=== PATIENT | female | born 1990 | race African-American/Black ===

== ENCOUNTER 2020-03-01 08:38 | Emergency (ER) | payer MEDICAID ==
[2020-03-01] MEDS ORDERED: Sodium Chloride 0.9% 10 ML Syringe FLUSH PRN (08:41)
[2020-03-01] MEDS ORDERED: Sodium Chloride 0.9% 2.5 ML Syringe FLUSH PRN (08:41)
[2020-03-01] MEDS ORDERED: Sodium Chloride 0.9% 1,000 ML IV ONE (08:43)
[2020-03-01] MEDS ORDERED: Ibuprofen 800 MG Tab PO ONE ×2 (08:43→10:05)
--- NOTE | 2020-03-01 08:44 | EDM.PDOC ---
ED HPI GENERAL MEDICAL PROBLEM - General Stated Complaint: HEAVY BLEEDING Time Seen by Provider: 03/01/20 08:43 Source of Information: Reports: Patient History Limitations: Reports: No Limitations - History of Present Illness INITIAL COMMENTS - FREE TEXT/NARRATIVE: 29-year-old female presents for heavy vaginal bleeding. Patient is poor historian. She declines to answer certain questions because I am a male. She declines physical exam because I am a male. Patient notes that she was and had a miscarriage in November. She states that she had a positive test in January, but she is uncertain if she is or if this was because of her miscarriage in November. She notes heavy vaginal bleeding since yesterday after heavy lifting at work. She notes that she has had to use 3 pads this morning. She notes passage of clots. She feels nausea without vomiting. She does feel lower abdominal cramping pain. lower abdomen, lower back Pain Score (Numeric/FACES): 7 - Related Data Allergies Allergy/AdvReac Type Severity Reaction Status Date / Time No Known Allergies Allergy Verified 03/01/20 08:48 Home Meds: Home Meds Pnv No.95/Ferrous Fum/Folic AC [ Caplet] 1 tab PO DAILY 03/01/20 [History] ED ROS GENERAL - Review of Systems Review Of Systems: Comprehensive ROS is negative, except as noted in HPI. ED EXAM, GENERAL - Physical Exam Exam: See Below Exam Limited By: No Limitations General Appearance: Alert, WD/WN, No Apparent Distress Throat/Mouth: Normal Voice, No Airway Compromise Head: Atraumatic, Normocephalic Respiratory/Chest: No Respiratory Distress, No Accessory Muscle Use Cardiovascular: Normal Peripheral Pulses, Regular Rate, Rhythm GI/Abdominal: Soft, Non-Tender (Female) Exam: Other (Patient declines) Extremities: Normal Inspection Neurological: Alert, Normal Gait Psychiatric: Normal Affect, Normal Mood Skin Exam: Warm, Dry, Intact, Normal Color Course - Vital Signs Last Recorded V/S: Last Vital Signs Temp 97.9 F 03/01/20 08:45 Pulse 67 03/01/20 08:45 Resp 16 03/01/20 08:45 BP 118/84 03/01/20 08:45 Pulse Ox 99 03/01/20 08:45 - Orders/Labs/Meds Orders: Active Orders 24 hr Category Date Time Status HCG QUALITATIVE,URINE [URCHEM] Stat Lab 03/01/20 08:55 Received UA W/YUNIER RFLX IF INDICATED [URIN] Stat Lab 03/01/20 08:55 Received Sodium Chloride 0.9% [Saline Flush] Med 03/01/20 08:41 Active 10 ml FLUSH ASDIRECTED PRN Sodium Chloride 0.9% [Saline Flush] Med 03/01/20 08:41 Active 2.5 ml FLUSH ASDIRECTED PRN Saline Lock Insert [OM.PC] Stat Oth 03/01/20 08:42 Ordered Medication Orders Sodium Chloride (Saline Flush) 10 ml FLUSH ASDIRECTED PRN PRN Reason: Keep Vein Open Last Admin: 03/01/20 08:59 Dose: 10 ml Documented by: [id number] Sodium Chloride (Saline Flush) 2.5 ml FLUSH ASDIRECTED PRN PRN Reason: Keep Vein Open Last Admin: 03/01/20 08:59 Dose: 2.5 ml Documented by: [email or web address] Labs: Laboratory Tests 03/01/20 03/01/20 Range/Units 08:48 08:48 WBC 6.47 (4.0-11.0) K/uL RBC 5.00 (4.30-5.90) M/uL Hgb 14.1 (12.0-16.0) g/dL Hct 41.9 (36.0-46.0) % MCV 83.8 (80.0-98.0) fL MCH 28.2 (27.0-32.0) pg MCHC 33.7 (31.0-37.0) g/dL RDW Std Deviation 39.8 (28.0-62.0) fl RDW Coeff of Markell 13 (11.0-15.0) % Plt Count 188 (150-400) K/uL MPV 11.40 (7.40-12.00) fL Neut % (Auto) 54.5 (48.0-80.0) % Lymph % (Auto) 32.6 (16.0-40.0) % [place] % (Auto) 7.3 (0.0-15.0) % Eos % (Auto) 5.3 (0.0-7.0) % Baso % (Auto) 0.3 (0.0-1.5) % Neut # (Auto) 3.5 (1.4-5.7) K/uL Lymph # (Auto) 2.1 (0.6-2.4) K/uL [place] # (Auto) 0.5 (0.0-0.8) K/uL Eos # (Auto) 0.3 (0.0-0.7) K/uL Baso # (Auto) 0.0 (0.0-0.1) K/uL Nucleated RBC % 0.0 /100WBC Nucleated RBCs # 0 K/uL INR 1.21 APTT 26.3 (18.6-31.3) SEC Meds: Medications Generic Name Dose Route Start Last Admin Trade Name Freq PRN Reason Stop Dose Admin Sodium Chloride 10 ml 03/01/20 08:41 03/01/20 08:59 Saline Flush FLUSH 10 ml ASDIRECTED PRN Administration Keep Vein Open Sodium Chloride 2.5 ml 03/01/20 08:41 03/01/20 08:59 Saline Flush FLUSH 2.5 ml ASDIRECTED PRN Administration Keep Vein Open Discontinued Medications Generic Name Dose Route Start Last Admin Trade Name Freq PRN Reason Stop Dose Admin Sodium Chloride 1,000 mls @ 999 mls/hr 03/01/20 08:43 03/01/20 08:59 Normal Saline IV 03/01/20 09:43 999 mls/hr .Bolus ONE Administration Ibuprofen 800 mg 03/01/20 08:43 03/01/20 09:01 Motrin PO 03/01/20 08:44 Not Given ONETIME ONE Ibuprofen 800 mg 03/01/20 10:05 03/01/20 10:09 Motrin PO 03/01/20 10:06 800 mg ONETIME ONE Administration - Re-Assessments/Exams Free Text/Narrative Re-Assessment/Exam: 03/01/20 09:13 Will get labs, will treat medically. Will get ultrasound imaging. will follow up results and disposition accordingly. 03/01/20 10:03 Quantitative serum hCG level is negative. CBC is unremarkable. BMP is un remarkable. We will follow up ultrasound results and disposition accordingly. 03/01/20 10:27 US does not reveal emergent pathology. Recommend FIXTURE BUILDER f/u. Return precautions discussed and outlined in educational handout. Departure - Departure Time of Disposition: 10:27 Disposition: Home, Self-Care 01 Condition: Good Clinical Impression: Vaginal bleeding - Discharge Information Instructions: Abnormal Uterine Bleeding Referrals: PCP,None [Primary Care Provider] - Additional Instructions: Your test is negative. Your ultrasound does not reveal evidence of . Your hemoglobin level (blood count) is normal. You should follow-up with an FIXTURE BUILDER. If you experience continued heavy bleeding, feel like you are about to pass out, experience chest pain or shortness of breath, you should return to the emergency department for reassessment. If you do not have an FIXTURE BUILDER, below are a couple of different local options: [facility] [address] [place] [id number] [facility] [address] [place] [phone] The following information is given to patients seen in the emergency department who are being discharged to home. This information is to outline your options for follow-up care. We provide all patients seen in our emergency department with a follow-up referral. The need for follow-up, as well as the timing and circumstances, are variable depending upon the specifics of your emergency department visit. If you don't have a primary care physician on staff, we will provide you with a referral. We always advise you to contact your personal physician following an emergency department visit to inform them of the circumstance of the visit and for follow-up with them and/or the need for any referrals to a consulting specialist. The emergency department will also refer you to a specialist when appropriate. This referral assures that you have the opportunity for follow-up care with a specialist. All of these measure are taken in an effort to provide you with optimal care, which includes your follow-up. Under all circumstances we always encourage you to contact your private physician who remains a resource for coordinating your care. When calling for follow-up care, please make the office aware that this follow-up is from your recent emergency room visit. If for any reason you are refused follow-up, please contact the [facility] Emergency Department at and asked to speak to the emergency department charge nurse. Please follow up with your primary care physician. If you do not have a primary care physician, see below: [facility] [address] [place] [address], [place] [address] My [facility] [address] [place], [place] [id number] Sepsis Event Note (ED) - Focused Exam Vital Signs: Vital Signs Temp Pulse Resp BP Pulse Ox 03/01/20 08:45 97.9 F 67 16 118/84 99 - My Orders Last 24 Hours: My Active Orders 03/01/20 08:41 Sodium Chloride 0.9% [Saline Flush] 10 ml FLUSH ASDIRECTED PRN Sodium Chloride 0.9% [Saline Flush] 2.5 ml FLUSH ASDIRECTED PRN 03/01/20 08:42 Saline Lock Insert [OM.PC] Stat 03/01/20 08:55 HCG QUALITATIVE,URINE [URCHEM] Stat UA W/YUNIER RFLX IF INDICATED [URIN] Stat - Assessment/Plan Last 24 Hours: My Active Orders 03/01/20 08:41 Sodium Chloride 0.9% [Saline Flush] 10 ml FLUSH ASDIRECTED PRN Sodium Chloride 0.9% [Saline Flush] 2.5 ml FLUSH ASDIRECTED PRN 03/01/20 08:42 Saline Lock Insert [OM.PC] Stat 03/01/20 08:55 HCG QUALITATIVE,URINE [URCHEM] Stat UA W/YUNIER RFLX IF INDICATED [URIN] Stat
[2020-03-01 09:22] LABS: BLOOD UREA NITROGEN,BUN 10 mg/dL (7.0-18.0); CARBON DIOXIDE,CO2 27.7 mmol/L (21.0-32.0); CHLORIDE,CL 106 mmol/L (98-107); GLUCOSE RANDOM 100 mg/dL (74-106); POTASSIUM,K 3.7 mmol/L (3.5-5.1); SODIUM,NA 140 mmol/L (136-145)
--- NOTE | 2020-03-01 10:26 | US ---
Indication: with vaginal bleeding Technique: Sonography of the pelvis was performed. The study was performed transvaginally. Comparison: There are no prior studies for comparison Findings: The uterus is normal in size. There is heterogeneous thickening of the endometrium but there is no yolk sac, pole or organized fluid collection within the endometrium. There is moderate free fluid in the pelvis somewhat above that generally seen physiologically. However, it is sonographically simple. The ovaries are normal in size and there is no visible adnexal mass. Normal appearing follicles are identified bilaterally. Doppler of both ovaries was performed and there is normal arterial and venous flow without evidence of torsion. The differential for the heterogeneous thickening of the endometrium is very early IUP, pseudo gestational reaction of an ectopic , blood clot within the endometrial canal or gestational trophoblastic disease. I see no adnexal mass to directly suggest an ectopic . However, the fluid visualized is somewhat above that generally seen physiologically. Correlation with the clinical scenario and the quantitative HCG is advised. Impression: 1. There is no finding of IUP. There is heterogeneous thickening of the endometrium with differential considerations as discussed above. Correlate with clinical scenario and quantitative beta HCG. 2. No adnexal mass. 3. Moderate free fluid in the cul de sac. This is sonographically simple but above the generally seen physiologically. Please review the comment. Dictated by Sonu Covington MD @ Mar 01 2020 10:19AM Signed by Dr. Sonu Covington @ Mar 01 2020 10:24AM
== END 2020-03-01 10:39 | disposition home or self-care (01) ==
LOC: MW.ED 08:38
DX: N93.9 Abnormal uterine and vaginal bleeding, unspecified (principal)
CPT/HCPCS: 76801; 80048; 81001; 81025; 84702; 85025; 85610; 85730; 99284; A9270; J7030; 99283

== ENCOUNTER 2020-06-13 08:25 | Emergency (ER) | payer BC, MEDICAID ==
[2020-06-13] MEDS ORDERED: Sodium Chloride 0.9% 10 ML Syringe FLUSH PRN (08:35)
[2020-06-13] MEDS ORDERED: Sodium Chloride 0.9% 2.5 ML Syringe FLUSH PRN (08:35)
--- NOTE | 2020-06-13 09:14 | EDM.PDOC ---
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 She has had positive home tests but has not yet seen OBGYN. She notes bright red spotting this morning and now dark red. No tissue/clots. Patient declines pelvic exam. She denies abdominal pain, N/V, dysuria, fevers. Abdominal Pain Score (Numeric/FACES): 4 - Related Data Allergies Allergy/AdvReac Type Severity Reaction Status Date / Time No Known Allergies Allergy Verified 06/13/20 08:39 Home Meds: Home Meds . [No Known Home Meds] 06/13/20 [History] Past Medical History - Past Health History Medical/Surgical History: Denies Medical/Surgical History - Infectious Disease History Infectious Disease History: Reports: Chicken Pox Social & Family History - Family History Family Medical History: No Pertinent Family History - Tobacco Use Tobacco Use Status *Q: Never Tobacco User - Recreational Drug Use Recreational Drug Use: No ED ROS GENERAL - Review of Systems Review Of Systems: Comprehensive ROS is negative, except as noted in HPI. ED EXAM, GENERAL - Physical Exam Exam: See Below Exam Limited By: No Limitations General Appearance: Alert, WD/WN, No Apparent Distress Throat/Mouth: Normal Voice, No Airway Compromise Head: Atraumatic, Normocephalic Respiratory/Chest: No Respiratory Distress, Lungs Clear, Normal Breath Sounds, No Accessory Muscle Use Cardiovascular: Normal Peripheral Pulses, Regular Rate, Rhythm GI/Abdominal: Soft, Non-Tender (Female) Exam: Other (Patient declines) Extremities: Normal Inspection Neurological: Alert Psychiatric: Normal Affect, Normal Mood Skin Exam: Warm, Dry, Intact, Normal Color Course - Vital Signs Last Recorded V/S: Last Vital Signs Temp 97.8 F 06/13/20 08:41 Pulse 74 06/13/20 08:41 Resp 18 06/13/20 08:41 BP 119/91 H 06/13/20 08:41 Pulse Ox 98 06/13/20 08:41 - Orders/Labs/Meds Orders: Active Orders 24 hr Category Date Time Status Sodium Chloride 0.9% [Saline Flush] Med 06/13/20 08:35 Active 10 ml FLUSH ASDIRECTED PRN Sodium Chloride 0.9% [Saline Flush] Med 06/13/20 08:35 Active 2.5 ml FLUSH ASDIRECTED PRN Saline Lock Insert [OM.PC] Stat Oth 06/13/20 08:36 Ordered Medication Orders Sodium Chloride (Saline Flush) 2.5 ml FLUSH ASDIRECTED PRN PRN Reason: Keep Vein Open Last Admin: 06/13/20 08:47 Dose: 2.5 ml Documented by: [email or web address] Sodium Chloride (Saline Flush) 10 ml FLUSH ASDIRECTED PRN PRN Reason: Keep Vein Open Last Admin: 06/13/20 08:47 Dose: 10 ml Documented by: [id number] Labs: Laboratory Tests 06/13/20 06/13/20 06/13/20 Range/Units 08:40 08:40 08:47 WBC 5.94 (4.0-11.0) K/uL RBC 4.38 (4.30-5.90) M/uL Hgb 12.7 (12.0-16.0) g/dL Hct 36.7 (36.0-46.0) % MCV 83.8 (80.0-98.0) fL MCH 29.0 (27.0-32.0) pg MCHC 34.6 (31.0-37.0) g/dL RDW Std Deviation 42.4 (28.0-62.0) fl RDW Coeff of Markell 14 (11.0-15.0) % Plt Count 123 L (150-400) K/uL MPV 12.70 H (7.40-12.00) fL Neut % (Auto) 60.2 (48.0-80.0) % Lymph % (Auto) 29.1 (16.0-40.0) % [place] % (Auto) 7.2 (0.0-15.0) % Eos % (Auto) 3.2 (0.0-7.0) % Baso % (Auto) 0.3 (0.0-1.5) % Neut # (Auto) 3.6 (1.4-5.7) K/uL Lymph # (Auto) 1.7 (0.6-2.4) K/uL [place] # (Auto) 0.4 (0.0-0.8) K/uL Eos # (Auto) 0.2 (0.0-0.7) K/uL Baso # (Auto) 0.0 (0.0-0.1) K/uL Nucleated RBC % 0.0 /100WBC Nucleated RBCs # 0 K/uL Sodium (136-145) mmol/L Potassium (3.5-5.1) mmol/L Chloride (98-107) mmol/L Carbon Dioxide (21.0-32.0) mmol/L BUN (7.0-18.0) mg/dL Creatinine (0.6-1.0) mg/dL Est Cr Clr Drug Dosing mL/min Estimated GFR (MDRD) ml/min Glucose (74-106) mg/dL Calcium (8.5-10.1) mg/dL Total Bilirubin (0.2-1.0) mg/dL AST (15-37) IU/L ALT (14-63) IU/L Alkaline Phosphatase (46-116) U/L Total Protein (6.4-8.2) g/dL Albumin (3.4-5.0) g/dL Globulin (2.6-4.0) g/dL Albumin/Globulin Ratio (0.9-1.6) HCG, Quant mIU/mL Urine Color YELLOW Urine Appearance CLEAR Urine pH 6.5 (5.0-8.0) Ur Specific [place] 1.015 (1.001-1.035) Urine Protein NEGATIVE (NEGATIVE) mg/dL Urine Glucose (UA) NEGATIVE (NEGATIVE) mg/dL Urine Ketones NEGATIVE (NEGATIVE) mg/dL Urine Occult Blood SMALL H (NEGATIVE) Urine Nitrite NEGATIVE (NEGATIVE) Urine Bilirubin NEGATIVE (NEGATIVE) Urine Urobilinogen 0.2 (<2.0) EU/dL Ur Leukocyte Esterase NEGATIVE (NEGATIVE) Urine RBC 0-2 (0-2/HPF) Urine WBC 0-1 (0-5/HPF) Ur Epithelial Cells FEW (NONE-FEW) Urine Bacteria RARE (NEGATIVE) Urine HCG, Qual POSITIVE (NEGATIVE) Blood Type 06/13/20 06/13/20 Range/Units 08:47 08:47 WBC (4.0-11.0) K/uL RBC (4.30-5.90) M/uL Hgb (12.0-16.0) g/dL Hct (36.0-46.0) % MCV (80.0-98.0) fL MCH (27.0-32.0) pg MCHC (31.0-37.0) g/dL RDW Std Deviation (28.0-62.0) fl RDW Coeff of Markell (11.0-15.0) % Plt Count (150-400) K/uL MPV (7.40-12.00) fL Neut % (Auto) (48.0-80.0) % Lymph % (Auto) (16.0-40.0) % [place] % (Auto) (0.0-15.0) % Eos % (Auto) (0.0-7.0) % Baso % (Auto) (0.0-1.5) % Neut # (Auto) (1.4-5.7) K/uL Lymph # (Auto) (0.6-2.4) K/uL [place] # (Auto) (0.0-0.8) K/uL Eos # (Auto) (0.0-0.7) K/uL Baso # (Auto) (0.0-0.1) K/uL Nucleated RBC % /100WBC Nucleated RBCs # K/uL Sodium 136 (136-145) mmol/L Potassium 3.6 (3.5-5.1) mmol/L Chloride 103 (98-107) mmol/L Carbon Dioxide 22.7 (21.0-32.0) mmol/L BUN 4 L (7.0-18.0) mg/dL Creatinine 0.6 (0.6-1.0) mg/dL Est Cr Clr Drug Dosing 111.35 mL/min Estimated GFR (MDRD) > 60.0 ml/min Glucose 89 (74-106) mg/dL Calcium 9.2 (8.5-10.1) mg/dL Total Bilirubin 0.4 (0.2-1.0) mg/dL AST 12 L (15-37) IU/L ALT 15 (14-63) IU/L Alkaline Phosphatase 53 (46-116) U/L Total Protein 7.0 (6.4-8.2) g/dL Albumin 3.1 L (3.4-5.0) g/dL Globulin 3.9 (2.6-4.0) g/dL Albumin/Globulin Ratio 0.8 L (0.9-1.6) HCG, Quant 970398.0 mIU/mL Urine Color Urine Appearance Urine pH (5.0-8.0) Ur Specific [place] (1.001-1.035) Urine Protein (NEGATIVE) mg/dL Urine Glucose (UA) (NEGATIVE) mg/dL Urine Ketones (NEGATIVE) mg/dL Urine Occult Blood (NEGATIVE) Urine Nitrite (NEGATIVE) Urine Bilirubin (NEGATIVE) Urine Urobilinogen (<2.0) EU/dL Ur Leukocyte Esterase (NEGATIVE) Urine RBC (0-2/HPF) Urine WBC (0-5/HPF) Ur Epithelial Cells (NONE-FEW) Urine Bacteria (NEGATIVE) Urine HCG, Qual (NEGATIVE) Blood Type O POSITIVE Meds: Medications Generic Name Dose Route Start Last Admin Trade Name Freq PRN Reason Stop Dose Admin Sodium Chloride 2.5 ml 06/13/20 08:35 06/13/20 08:47 Saline Flush FLUSH 2.5 ml ASDIRECTED PRN Administration Keep Vein Open Sodium Chloride 10 ml 06/13/20 08:35 06/13/20 08:47 Saline Flush FLUSH 10 ml ASDIRECTED PRN Administration Keep Vein Open - Re-Assessments/Exams Free Text/Narrative Re-Assessment/Exam: 06/13/20 10:18 Patient's US reveals viable twin pregnancies. WIll refer to OBGYN for follow-up as needed, return precautions discussed Departure - Departure Time of Disposition: 10:19 Disposition: Home, Self-Care 01 Condition: Good Clinical Impression: Threatened miscarriage in early - Discharge Information Referrals: Bar Calixto [Primary Care Provider] - Forms: ED Department Discharge Additional Instructions: Please follow up with an OBGYN within the next week: [address] [address] The following information is given to patients seen in the emergency department who are being discharged to home. This information is to outline your options for follow-up care. We provide all patients seen in our emergency department with a follow-up referral. The need for follow-up, as well as the timing and circumstances, are variable depending upon the specifics of your emergency department visit. If you don't have a primary care physician on staff, we will provide you with a referral. We always advise you to contact your personal physician following an emergency department visit to inform them of the circumstance of the visit and for follow-up with them and/or the need for any referrals to a consulting specialist. The emergency department will also refer you to a specialist when appropriate. This referral assures that you have the opportunity for follow-up care with a specialist. All of these measure are taken in an effort to provide you with optimal care, which includes your follow-up. Under all circumstances we always encourage you to contact your private physician who remains a resource for coordinating your care. When calling for follow-up care, please make the office aware that this follow-up is from your recent emergency room visit. If for any reason you are refused follow-up, please contact the [facility] Emergency Department at and asked to speak to the emergency department charge nurse. Please follow up with your primary care physician. If you do not have a primary care physician, see below: [facility] [address] [place] [address] [facility] [address] [place] [address] Sepsis Event Note (ED) - Evaluation Sepsis Screening Result: No Definite Risk - Focused Exam Vital Signs: Vital Signs Temp Pulse Resp BP Pulse Ox 06/13/20 08:41 97.8 F 74 18 119/91 H 98 - My Orders Last 24 Hours: My Active Orders 06/13/20 08:35 Sodium Chloride 0.9% [Saline Flush] 10 ml FLUSH ASDIRECTED PRN Sodium Chloride 0.9% [Saline Flush] 2.5 ml FLUSH ASDIRECTED PRN 06/13/20 08:36 Saline Lock Insert [OM.PC] Stat - Assessment/Plan Last 24 Hours: My Active Orders 06/13/20 08:35 Sodium Chloride 0.9% [Saline Flush] 10 ml FLUSH ASDIRECTED PRN Sodium Chloride 0.9% [Saline Flush] 2.5 ml FLUSH ASDIRECTED PRN 06/13/20 08:36 Saline Lock Insert [OM.PC] Stat
[2020-06-13 09:37] LABS: BLOOD UREA NITROGEN,BUN 4 mg/dL (7.0-18.0); CARBON DIOXIDE,CO2 22.7 mmol/L (21.0-32.0); CHLORIDE,CL 103 mmol/L (98-107); GLUCOSE RANDOM 89 mg/dL (74-106); POTASSIUM,K 3.6 mmol/L (3.5-5.1); SODIUM,NA 136 mmol/L (136-145)
--- NOTE | 2020-06-13 09:44 | US ---
INDICATION: Eleven week with vaginal bleeding. TECHNIQUE: Ultrasound OB pelvis transabdominal. Real-time pastor-scale imaging of the pelvis was performed. COMPARISON: None FINDINGS: Sonographic imaging demonstrates a twin intrauterine gestation. Fetus A demonstrates a regular cardiac rate measuring 165 beats per minute. The embryo`s crown rump length measurement of 4.9 cm. Fetus B demonstrates a regular cardiac rate measuring 161 beats per minute. The embryo`s crown rump length measurement of 4.6 cm. Estimated ultrasound age is 11 weeks 0 days with estimated date of delivery January 02, 2021. There are no gross abnormalities noted within the embryos at this early state of development. There are 2 amniotic sacs. Placentas have not yet developed. There is no sign of perigestational hemorrhage. The ovaries are of normal size. There are no suspicious fluid collections noted in the cul-de-sac. IMPRESSION: Viable twin intrauterine with an estimated ultrasound age of 11 weeks 0 days and estimated date of delivery January 02, 2021. This is a diamniotic . No sign of hemorrhage or other explanation for vaginal bleeding. Dictated by Gabriel Bell MD @ Jun 13 2020 9:25AM Signed by Dr. Gabriel Bell @ Jun 13 2020 9:42AM
== END 2020-06-13 10:30 | disposition home or self-care (01) ==
LOC: MW.ED 08:25
DX: O20.0 Threatened abortion (principal); Z3A.11 11 weeks gestation of pregnancy
CPT/HCPCS: 76801; 76801-26; 80053; 81001; 81025; 84702; 85025; 86900; 86901; 99283; 99284-25

== ENCOUNTER 2020-12-11 06:42 | Inpatient (IN) | payer MEDICAID ==
[2020-12-11] MEDS: Lactated Ringers 1,000 ML IV SCH ×2 (07:30→08:15)
[2020-12-11] MEDS ORDERED: Ropivacaine HCl/PF 200 ML ONE (07:36)
[2020-12-11] MEDS ORDERED: Bupivacaine 0.25% 30 ML SDV ONE (07:36)
[2020-12-11] MEDS ORDERED: Sodium Chloride 0.9% 2.5 ML Syringe FLUSH PRN (08:03)
[2020-12-11] MEDS ORDERED: Nalbuphine 10 MG/1 ML Vial IVPUSH PRN (08:03)
[2020-12-11] MEDS ORDERED: Lidocaine 1% 50 ML MDV INJECT PRN (08:03)
[2020-12-11] MEDS ORDERED: Methylergonovine 0.2 MG/1 ML Amp IM PRN ×2 (08:03→11:25)
[2020-12-11] MEDS ORDERED: Misoprostol 200 MCG Tab PO PRN (08:03)
[2020-12-11] MEDS ORDERED: Sodium Chloride 0.9% 10 ML SDV IV PRN (08:03)
[2020-12-11] MEDS ORDERED: Tranexamic Acid 1,000 MG in Sodium Chloride 0.9% 100 ML IV PRN (08:03)
[2020-12-11] MEDS ORDERED: Water For Irrigation,Sterile 1,000 ML Container IRR PRN (08:03)
[2020-12-11] MEDS ORDERED: Carboprost Tromethamine 250 MCG/1 ML Amp IM PRN (08:03)
[2020-12-11] MEDS ORDERED: Butorphanol 1 MG/ML SDV IVPUSH PRN (08:03)
[2020-12-11] MEDS ORDERED: Sodium Chloride 0.9% 10 ML Syringe FLUSH PRN (08:03)
[2020-12-11] MEDS ORDERED: Oxytocin/0.9 % Sodium Chloride 30 UNIT/500 ML BAG IV SCH (08:15)
[2020-12-11] MEDS ORDERED: fentaNYL 100 MCG/2 ML SDV ONE (10:38)
[2020-12-11] MEDS ORDERED: ceFAZolin 1 GM Vial ONE (10:53)
[2020-12-11] MEDS ORDERED: Sodium Chloride 0.9% 100 ML ONE (11:08)
[2020-12-11] MEDS ORDERED: Benzocaine/Menthol 20%-0.5% Spray 78 GM Cannister TOP PRN (11:25)
[2020-12-11] MEDS ORDERED: Lanolin 100% Cream 7 GM Tube TOP PRN (11:25)
[2020-12-11] MEDS ORDERED: Docusate Sodium 100 MG Cap PO PRN (11:25)
[2020-12-11] MEDS ORDERED: Witch Hazel Medicated Pads 40/Jar TOP PRN (11:25)
[2020-12-11] MEDS ORDERED: oxyCODONE 5 MG Tab PO PRN (11:25)
[2020-12-11] MEDS ORDERED: Ibuprofen 400 MG Tab PO PRN (11:25)
[2020-12-11] MEDS ORDERED: Bisacodyl 10 MG Supp RECTAL PRN (11:25)
[2020-12-11] MEDS ORDERED: Acetaminophen 500 MG Tab PO PRN (11:25)
--- NOTE | 2020-12-11 11:31 | PCM.DEL ---
<FranciscoLois - Last Filed: 12/11/20 11:26> L & D Note - General Info Date of Service: 12/11/20 - Delivery Note Labor: Spontaneous Delivery Outcome: Livebirth Delivery Method: Spontaneous Vaginal Delivery-Twins Delivery Mode: Spontaneous Presentation: Other (Baby A YUNIOR, Baby B Breech) Nuchal Cord: Present (Baby B) Anesthesia Type: Epidural Amniotic Fluid Description: Clear (X2) Episiotomy Type: None Laceration: 1st Degree, Perineal Suture type: Vicryl Suture size: 3-0 Placenta: Intact, Spontaneous Cord: 3 Vessels (X2) Estimated Blood Loss: 400 Resuscitation Needed: Yes : Bulb Syringe, Stimulated, Warmed, [place] Used, Warmer Used Score 1 min: 8 (Baby A: 8, Baby B: 8) Score 5 min: 9 (Baby A: 9, Baby B: 9) Second Stage Interventions: Reports: Pushing Effectively - General Info Date of Service: 12/11/20 Functional Status: Reports: Pain Controlled - Patient Data Weight - Most Recent: 185 lb Lab Results Last 24 Hours: Laboratory Results - last 24 hr 12/11/20 12/11/20 12/11/20 Range/Units 07:30 07:30 07:40 WBC 5.28 (4.0-11.0) K/uL RBC 4.47 (4.30-5.90) M/uL Hgb 12.8 (12.0-16.0) g/dL Hct 38.0 (36.0-46.0) % MCV 85.0 (80.0-98.0) fL MCH 28.6 (27.0-32.0) pg MCHC 33.7 (31.0-37.0) g/dL RDW Std Deviation 55.4 (28.0-62.0) fl RDW Coeff of Markell 18 H (11.0-15.0) % Plt Count 100 L (150-400) K/uL MPV 11.20 (7.40-12.00) fL Nucleated RBC % 0.0 /100WBC Nucleated RBCs # 0 K/uL POC Glucose (70-99) mg/dL SARS-CoV-2 RNA (JOSE) NEGATIVE (NEGATIVE) Blood Type O POSITIVE Antibody Screen NEGATIVE 12/11/20 Range/Units 09:04 WBC (4.0-11.0) K/uL RBC (4.30-5.90) M/uL Hgb (12.0-16.0) g/dL Hct (36.0-46.0) % MCV (80.0-98.0) fL MCH (27.0-32.0) pg MCHC (31.0-37.0) g/dL RDW Std Deviation (28.0-62.0) fl RDW Coeff of Markell (11.0-15.0) % Plt Count (150-400) K/uL MPV (7.40-12.00) fL Nucleated RBC % /100WBC Nucleated RBCs # K/uL POC Glucose 75 (70-99) mg/dL SARS-CoV-2 RNA (JOSE) (NEGATIVE) Blood Type Antibody Screen Med Orders - Current: Current Medications Butorphanol Tartrate (Butorphanol 1 Mg/Ml Sdv) 1 mg IVPUSH Q1H PRN PRN Reason: Pain (severe 7-10) Carboprost Tromethamine (Carboprost Tromethamine 250 Mcg/1 Ml Amp) 250 mcg IM ASDIRECTED PRN PRN Reason: Post Hemorrhage Lactated Ringer's (Ringers, Lactated) 1,000 mls @ 150 mls/hr IV ASDIRECTED [facility] Last Admin: 12/11/20 08:15 Dose: 150 mls/hr Documented by: Oxytocin/Sodium Chloride (Oxytocin 30 Unit/500 Ml-Ns) 30 unit in 500 mls @ 999 mls/hr IV TITRATE [facility] Tranexamic Acid 1,000 mg/ (Sodium Chloride) 110 mls @ 660 mls/hr IV ONETIME PRN PRN Reason: Bleeding Lidocaine HCl (Lidocaine 1% 50 Ml Mdv) 50 ml INJECT ONETIME PRN PRN Reason: Laceration repair Methylergonovine Maleate (Methylergonovine 0.2 Mg/1 Ml Amp) 0.2 mg IM ASDIRECTED PRN PRN Reason: Post Hemorrhage Misoprostol (Misoprostol 200 Mcg Tab) 200 mcg PO ONETIME PRN PRN Reason: Post Hemorrhage Nalbuphine HCl (Nalbuphine 10 Mg/1 Ml Vial) 10 mg IVPUSH Q1H PRN PRN Reason: Pain (severe 7-10) Sodium Chloride (Sodium Chloride 0.9% 10 Ml Syringe) 10 ml FLUSH ASDIRECTED PRN PRN Reason: Keep Vein Open Sodium Chloride (Sodium Chloride 0.9% 2.5 Ml Syringe) 2.5 ml FLUSH ASDIRECTED PRN PRN Reason: Keep Vein Open Sodium Chloride (Sodium Chloride 0.9% 10 Ml Sdv) 10 ml IV ASDIRECTED PRN PRN Reason: IV Use Sterile Water (Water For Irrigation,Sterile 1,000 Ml Container) 1,000 ml IRR ASDIRECTED PRN PRN Reason: delivery Discontinued Medications Bupivacaine HCl (Bupivacaine 0.25% 30 Ml Sdv) Confirm Administered Dose 30 ml .ROUTE .STK-MED ONE Stop: 12/11/20 07:37 Cefazolin Sodium (Cefazolin 1 Gm Vial) Confirm Administered Dose 2 gm .ROUTE .STK-MED ONE Stop: 12/11/20 10:54 Fentanyl (Fentanyl 100 Mcg/2 Ml Sdv) Confirm Administered Dose 100 mcg .ROUTE .STK-MED ONE Stop: 12/11/20 10:39 Ropivacaine (Naropin 0.2%) Confirm Administered Dose 200 mls @ as directed .ROUTE .STK-MED ONE Stop: 12/11/20 07:37 Sodium Chloride (Normal Saline) Confirm Administered Dose 100 mls @ as directed .ROUTE .STK-MED ONE Stop: 12/11/20 11:09 - Exam Urinary Catheter Total Time: 0Days 0Hours - Problem List Review Problem List Initiated/Reviewed/Updated: Yes - Assessment Assessment:: Coco Sánchez is a 30 yo at 37w1d s/p of Di-Di twins. Post day 0. - Plan Plan:: Routine care * GBS negative, O positive, rubella immune * Gestational diabetes on metformin * Thrombocytopenia during * PO pain medication ordered PRN * Continue to monitor vaginal bleeding and symptoms * Encourage ambulation * Regular diet as tolerated * Plan circumcision for male * Planning to breastfeed with supplemental bottle feeding * Recheck CBC and 2 hour GTT 4 weeks <Jaci Jacobs - Last Filed: 12/12/20 09:23> - Patient Data Vitals - Most Recent: Last Vital Signs Temp 97.3 F 12/12/20 03:55 Pulse 70 12/12/20 03:55 Resp 16 12/12/20 03:55 BP 106/58 L 12/12/20 03:55 Pulse Ox 97 12/12/20 03:55 Lab Results Last 24 Hours: Laboratory Results - last 24 hr 12/11/20 12/11/20 12/12/20 Range/Units 07:30 07:40 05:34 Hgb 12.5 (12.0-16.0) g/dL Hct 37.6 (36.0-46.0) % SARS-CoV-2 RNA (JOSE) NEGATIVE (NEGATIVE) Blood Type O POSITIVE Antibody Screen NEGATIVE Med Orders - Current: Current Medications Acetaminophen (Acetaminophen 500 Mg Tab) 500 mg PO Q4H PRN PRN Reason: Pain (mild 1-3) Acetaminophen (Acetaminophen 500 Mg Tab) 1,000 mg PO Q4H PRN PRN Reason: Pain (mild 1-3) Last Admin: 12/11/20 20:15 Dose: 1,000 mg Documented by: Benzocaine/Menthol (Benzocaine/Menthol 20%-0.5% [place] 78 Gm Cannister) 78 gm TOP ASDIRECTED PRN PRN Reason: Perineal Comfort Measure Last Admin: 12/11/20 15:30 Dose: 1 can Documented by: Bisacodyl (Bisacodyl 10 Mg Supp) 10 mg RECTAL ONETIME PRN PRN Reason: Constipation Docusate Sodium (Docusate Sodium 100 Mg Cap) 100 mg PO Q12H PRN PRN Reason: Constipation Last Admin: 12/11/20 20:15 Dose: 100 mg Documented by: Emollient Ointment (Lanolin 100% Cream 7 Gm Tube) 0 gm TOP ASDIRECTED PRN PRN Reason: Sore Nipples Ibuprofen (Ibuprofen 400 Mg Tab) 400 mg PO Q4H PRN PRN Reason: Pain (mild 1-3) Ibuprofen (Ibuprofen 800 Mg Tab) 800 mg PO Q6H PRN PRN Reason: Pain (mild 1-3) Last Admin: 12/12/20 08:34 Dose: 800 mg Documented by: Methylergonovine Maleate (Methylergonovine 0.2 Mg/1 Ml Amp) 0.2 mg IM ONETIME PRN PRN Reason: Excessive Vaginal Bleeding Oxycodone HCl (Oxycodone 5 Mg Tab) 5 mg PO Q2H PRN PRN Reason: Pain (severe 7-10) Sodium Chloride (Sodium Chloride 0.9% 10 Ml Syringe) 10 ml FLUSH ASDIRECTED PRN PRN Reason: Keep Vein Open Sodium Chloride (Sodium Chloride 0.9% 2.5 Ml Syringe) 2.5 ml FLUSH ASDIRECTED PRN PRN Reason: Keep Vein Open Sodium Chloride (Sodium Chloride 0.9% 10 Ml Sdv) 10 ml IV ASDIRECTED PRN PRN Reason: IV Use Witch Birgit (Witch Birgit Medicated Pads 40/Jar) 1 pad TOP ASDIRECTED PRN PRN Reason: comfort care Last Admin: 12/11/20 15:30 Dose: 1 tub Documented by: Discontinued Medications Bupivacaine HCl (Bupivacaine 0.25% 30 Ml Sdv) Confirm Administered Dose 30 ml .ROUTE .STK-MED ONE Stop: 12/11/20 07:37 Last Admin: 12/11/20 20:42 Dose: Not Given Documented by: Butorphanol Tartrate (Butorphanol 1 Mg/Ml Sdv) 1 mg IVPUSH Q1H PRN PRN Reason: Pain (severe 7-10) Carboprost Tromethamine (Carboprost Tromethamine 250 Mcg/1 Ml Amp) 250 mcg IM ASDIRECTED PRN PRN Reason: Post Hemorrhage Cefazolin Sodium (Cefazolin 1 Gm Vial) Confirm Administered Dose 2 gm .ROUTE .STK-MED ONE Stop: 12/11/20 10:54 Fentanyl (Fentanyl 100 Mcg/2 Ml Sdv) Confirm Administered Dose 100 mcg .ROUTE .STK-MED ONE Stop: 12/11/20 10:39 Ropivacaine (Naropin 0.2%) Confirm Administered Dose 200 mls @ as directed .ROUTE .STK-MED ONE Stop: 12/11/20 07:37 Last Admin: 12/11/20 20:42 Dose: Not Given Documented by: Lactated Ringer's (Ringers, Lactated) 1,000 mls @ 150 mls/hr IV ASDIRECTED [facility] Last Admin: 12/11/20 08:15 Dose: 150 mls/hr Documented by: Oxytocin/Sodium Chloride (Oxytocin 30 Unit/500 Ml-Ns) 30 unit in 500 mls @ 999 mls/hr IV TITRATE [facility] Last Admin: 12/11/20 10:52 Dose: 250 mls/hr Documented by: Tranexamic Acid 1,000 mg/ (Sodium Chloride) 110 mls @ 660 mls/hr IV ONETIME PRN PRN Reason: Bleeding Last Admin: 12/11/20 11:09 Dose: 660 mls/hr Documented by: Sodium Chloride (Normal Saline) Confirm Administered Dose 100 mls @ as directed .ROUTE .STK-MED ONE Stop: 12/11/20 11:09 Last Admin: 12/11/20 20:42 Dose: Not Given Documented by: Lidocaine HCl (Lidocaine 1% 50 Ml Mdv) 50 ml INJECT ONETIME PRN PRN Reason: Laceration repair Methylergonovine Maleate (Methylergonovine 0.2 Mg/1 Ml Amp) 0.2 mg IM ASDIRECTED PRN PRN Reason: Post Hemorrhage Misoprostol (Misoprostol 200 Mcg Tab) 200 mcg PO ONETIME PRN PRN Reason: Post Hemorrhage Nalbuphine HCl (Nalbuphine 10 Mg/1 Ml Vial) 10 mg IVPUSH Q1H PRN PRN Reason: Pain (severe 7-10) Sterile Water (Water For Irrigation,Sterile 1,000 Ml Container) 1,000 ml IRR ASDIRECTED PRN PRN Reason: delivery - My Orders Last 24 Hours: My Active Orders 12/11/20 11:25 Acetaminophen [Tylenol Extra Strength] 1,000 mg PO Q4H PRN Acetaminophen [Tylenol Extra Strength] 500 mg PO Q4H PRN Benzocaine/Menthol [Dermoplast Pain Relief 20%-0.5% [place]] 78 gm TOP ASDIRECTED PRN Docusate Sodium [Colace] 100 mg PO Q12H PRN Ibuprofen [Motrin] 400 mg PO Q4H PRN Ibuprofen [Motrin] 800 mg PO Q6H PRN Lanolin [Lansinoh HPA] See Dose Instructions TOP ASDIRECTED PRN Methylergonovine [Methergine] 0.2 mg IM ONETIME PRN bisacodyL [Dulcolax] 10 mg RECTAL ONETIME PRN oxyCODONE 5 mg PO Q2H PRN witch Birgit [Tucks] 1 pad TOP ASDIRECTED PRN 12/11/20 11:26 Patient Status [ADT] Routine May Shower [RC] ASDIRECTED Up ad Brigitte [RC] ASDIRECTED Vital Signs [RC] PER UNIT ROUTINE Assess Lochia [WOMSER] Per Unit Routine Assess Uterine Involution [WOMSER] Per Unit Routine Peripheral IV Discontinue [OM.PC] Routine - Plan Plan:: Agree with above.
--- NOTE | 2020-12-11 13:14 | OR ---
SURGEON: JACI BANEGAS MD DATE OF PROCEDURE: 12/11/2020 PREOPERATIVE DIAGNOSES: 1. Dichorionic twin gestation at 37 weeks 1 day. 2. Gestational diabetes, requiring medication. 3. Thrombocytopenia. 4. Malpresentation of baby B. POSTOPERATIVE DIAGNOSES: 1. Dichorionic twin gestation at 37 weeks 1 day. 2. Gestational diabetes, requiring medication. 3. Thrombocytopenia. 4. Malpresentation of baby B. PROCEDURE PERFORMED: 1. Normal spontaneous vaginal delivery of baby A. 2. Spontaneous breech extraction of baby B. 3. Repair of first-degree laceration. PRIMARY SURGEON: Jaci Banegas MD ASSISTANTS: Osiris Clifton MD and REMI Matos. ANESTHESIA: Epidural. COMPLICATIONS: None known. FINDINGS: Baby A, viable male infant in cephalic presentation. scores of 8 and 9. Weight 7 pounds 2 ounces. Baby B, viable female in double footling breech presentation. scores 8 and 9. Weight 6 pounds 2 ounces. First- degree perineal laceration. INDICATIONS FOR PROCEDURE: The patient is a 30-year-old 6, para 3-0-1-3 who presented to Labor and Delivery on the morning of 12/11/2020 with spontaneous rupture of membranes. was complicated by di/di twin gestation, gestational diabetes, and thrombocytopenia. After admission to Labor and Delivery, the patient received an epidural for pain management. Labor progressed spontaneously. At approximately 0955, I was contacted, and the patient was completely dilated, and the patient was then transferred to the operating room. DESCRIPTION OF PROCEDURE: After patient was positioned on the operating room table, she was placed in the dorsal lithotomy position with a left tilt. She pushed with over 3 contractions and with good descent. Baby A's head delivered in occiput anterior position, restituted ROT. Anterior shoulder delivered easily. No nuchal cord was noted. Posterior shoulder and remaining body were then delivered. After 30 seconds, the cord was clamped and cut, and baby handed off to waiting nursing staff for further evaluation. Arterial, venous, and cord blood gases were then obtained from baby A's umbilical cord. Baby B's sac noted to be intact. Bedside ultrasound was then performed, and baby B noted to be in breech presentation still. Attempt was made for external cephalic version; however, this was unsuccessful. At this juncture, risks of proceeding with a breech extraction versus a primary section for malpresentation were then discussed with the patient and her significant other. After further review, the patient desired to proceed with breech extraction at this time. Vaginal exam was then performed, and bilateral lower extremities were noted to be the presenting part and spine was noted to be towards maternal right with the baby B's amniotic sac intact. The bilateral lower extremities were then grasped, and the patient was coached through, pushing over 2 contractions with good descent noted. During the third contraction with pushing efforts, the amniotic sac incidentally ruptured with clear fluid noted. The bilateral lower extremities were again grasped, and delivered spontaneously to the level of the scapula. The right upper extremity was then reduced across the infant's chest followed by a similar procedure on the left. The patient was then instructed to push an additional time and with slight flexion of the head, 's head delivered atraumatically. Nose and mouth suctioned with bulb. Cord clamped and cut, and the infant was handed off to waiting nursing staff for further evaluation. Arterial, venous, and cord blood gases were then obtained and placenta was then expressed spontaneously. Due to a small amount of continued oozing, a manual exam of the uterus was then performed, and the uterus noted to be cleared of all products of conception and noted to firm after initiation of Pitocin. Inspection of the cervix, vaginal cornell, and perineum was then performed with a small first-degree perineal laceration noted. This was reapproximated in the usual fashion with 3-0 Vicryl. Due to a small amount of continued oozing, 1 g of IV TXA was given due to patient's history of thrombocytopenia. Fundal massage was performed once again, and fundus noted to be below the umbilicus and firm. Bleeding light at this time. Sponge, lap, and needle count were correct x2. The patient taken to room for recovery in stable condition. JÚNIOR / TAWNY /[id number]
[2020-12-11] MEDS: Ibuprofen 800 MG Tab PO PRN ×2 (15:30→23:49)
[2020-12-11] MEDS: Acetaminophen 500 MG Tab PO PRN (20:15)
--- NOTE | 2020-12-12 07:37 | PCM.PNPP ---
<Lois Singh - Last Filed: 12/12/20 07:32> - General Info Date of Service: 12/12/20 Subjective Update: Patient doing well this morning. Having some pain but is controlled with PRN pain medications. Having minimal bleeding. Able to ambulate and having no difficulty with urination. Patient doing combination of breast and bottle feeding. Denies fever, shortness of breath, chest pain, or lightheadedness. Functional Status: Reports: Pain Controlled, Tolerating Diet, Ambulating, Urinating - Review of Systems General: Reports: No Symptoms HEENT: Reports: No Symptoms Pulmonary: Reports: No Symptoms Cardiovascular: Reports: No Symptoms Gastrointestinal: Reports: No Symptoms Genitourinary: Reports: No Symptoms Musculoskeletal: Reports: No Symptoms Skin: Reports: No Symptoms Neurological: Reports: No Symptoms Psychiatric: Reports: No Symptoms - General Info Date of Service: 12/12/20 - Patient Data Vital Signs - Most Recent: Last Vital Signs Temp 97.3 F 12/12/20 03:55 Pulse 70 12/12/20 03:55 Resp 16 12/12/20 03:55 BP 106/58 L 12/12/20 03:55 Pulse Ox 97 12/12/20 03:55 Weight - Most Recent: 185 lb Lab Results - Last 24 Hours: Laboratory Results - last 24 hr 12/11/20 12/11/20 12/11/20 Range/Units 07:30 07:30 07:40 WBC 5.28 (4.0-11.0) K/uL RBC 4.47 (4.30-5.90) M/uL Hgb 12.8 (12.0-16.0) g/dL Hct 38.0 (36.0-46.0) % MCV 85.0 (80.0-98.0) fL MCH 28.6 (27.0-32.0) pg MCHC 33.7 (31.0-37.0) g/dL RDW Std Deviation 55.4 (28.0-62.0) fl RDW Coeff of Markell 18 H (11.0-15.0) % Plt Count 100 L (150-400) K/uL MPV 11.20 (7.40-12.00) fL Nucleated RBC % 0.0 /100WBC Nucleated RBCs # 0 K/uL POC Glucose (70-99) mg/dL SARS-CoV-2 RNA (JOSE) NEGATIVE (NEGATIVE) Blood Type O POSITIVE Antibody Screen NEGATIVE 12/11/20 12/12/20 Range/Units 09:04 05:34 WBC (4.0-11.0) K/uL RBC (4.30-5.90) M/uL Hgb 12.5 (12.0-16.0) g/dL Hct 37.6 (36.0-46.0) % MCV (80.0-98.0) fL MCH (27.0-32.0) pg MCHC (31.0-37.0) g/dL RDW Std Deviation (28.0-62.0) fl RDW Coeff of Markell (11.0-15.0) % Plt Count (150-400) K/uL MPV (7.40-12.00) fL Nucleated RBC % /100WBC Nucleated RBCs # K/uL POC Glucose 75 (70-99) mg/dL SARS-CoV-2 RNA (JOSE) (NEGATIVE) Blood Type Antibody Screen Med Orders - Current: Current Medications Acetaminophen (Acetaminophen 500 Mg Tab) 500 mg PO Q4H PRN PRN Reason: Pain (mild 1-3) Acetaminophen (Acetaminophen 500 Mg Tab) 1,000 mg PO Q4H PRN PRN Reason: Pain (mild 1-3) Last Admin: 12/11/20 20:15 Dose: 1,000 mg Documented by: Benzocaine/Menthol (Benzocaine/Menthol 20%-0.5% [place] 78 Gm Cannister) 78 gm TOP ASDIRECTED PRN PRN Reason: Perineal Comfort Measure Last Admin: 12/11/20 15:30 Dose: 1 can Documented by: Bisacodyl (Bisacodyl 10 Mg Supp) 10 mg RECTAL ONETIME PRN PRN Reason: Constipation Docusate Sodium (Docusate Sodium 100 Mg Cap) 100 mg PO Q12H PRN PRN Reason: Constipation Last Admin: 12/11/20 20:15 Dose: 100 mg Documented by: Emollient Ointment (Lanolin 100% Cream 7 Gm Tube) 0 gm TOP ASDIRECTED PRN PRN Reason: Sore Nipples Ibuprofen (Ibuprofen 400 Mg Tab) 400 mg PO Q4H PRN PRN Reason: Pain (mild 1-3) Ibuprofen (Ibuprofen 800 Mg Tab) 800 mg PO Q6H PRN PRN Reason: Pain (mild 1-3) Last Admin: 12/11/20 23:49 Dose: 800 mg Documented by: Methylergonovine Maleate (Methylergonovine 0.2 Mg/1 Ml Amp) 0.2 mg IM ONETIME PRN PRN Reason: Excessive Vaginal Bleeding Oxycodone HCl (Oxycodone 5 Mg Tab) 5 mg PO Q2H PRN PRN Reason: Pain (severe 7-10) Sodium Chloride (Sodium Chloride 0.9% 10 Ml Syringe) 10 ml FLUSH ASDIRECTED PRN PRN Reason: Keep Vein Open Sodium Chloride (Sodium Chloride 0.9% 2.5 Ml Syringe) 2.5 ml FLUSH ASDIRECTED PRN PRN Reason: Keep Vein Open Sodium Chloride (Sodium Chloride 0.9% 10 Ml Sdv) 10 ml IV ASDIRECTED PRN PRN Reason: IV Use Witch Birgit (Witch Birgit Medicated Pads 40/Jar) 1 pad TOP ASDIRECTED PRN PRN Reason: comfort care Last Admin: 12/11/20 15:30 Dose: 1 tub Documented by: Discontinued Medications Bupivacaine HCl (Bupivacaine 0.25% 30 Ml Sdv) Confirm Administered Dose 30 ml .ROUTE .STK-MED ONE Stop: 12/11/20 07:37 Last Admin: 12/11/20 20:42 Dose: Not Given Documented by: Butorphanol Tartrate (Butorphanol 1 Mg/Ml Sdv) 1 mg IVPUSH Q1H PRN PRN Reason: Pain (severe 7-10) Carboprost Tromethamine (Carboprost Tromethamine 250 Mcg/1 Ml Amp) 250 mcg IM ASDIRECTED PRN PRN Reason: Post Hemorrhage Cefazolin Sodium (Cefazolin 1 Gm Vial) Confirm Administered Dose 2 gm .ROUTE .STK-MED ONE Stop: 12/11/20 10:54 Fentanyl (Fentanyl 100 Mcg/2 Ml Sdv) Confirm Administered Dose 100 mcg .ROUTE .STK-MED ONE Stop: 12/11/20 10:39 Ropivacaine (Naropin 0.2%) Confirm Administered Dose 200 mls @ as directed .ROUTE .STK-MED ONE Stop: 12/11/20 07:37 Last Admin: 12/11/20 20:42 Dose: Not Given Documented by: Lactated Ringer's (Ringers, Lactated) 1,000 mls @ 150 mls/hr IV ASDIRECTED [facility] Last Admin: 12/11/20 08:15 Dose: 150 mls/hr Documented by: Oxytocin/Sodium Chloride (Oxytocin 30 Unit/500 Ml-Ns) 30 unit in 500 mls @ 999 mls/hr IV TITRATE [facility] Last Admin: 12/11/20 10:52 Dose: 250 mls/hr Documented by: Tranexamic Acid 1,000 mg/ (Sodium Chloride) 110 mls @ 660 mls/hr IV ONETIME PRN PRN Reason: Bleeding Last Admin: 12/11/20 11:09 Dose: 660 mls/hr Documented by: Sodium Chloride (Normal Saline) Confirm Administered Dose 100 mls @ as directed .ROUTE .[facility]-MED ONE Stop: 12/11/20 11:09 Last Admin: 12/11/20 20:42 Dose: Not Given Documented by: Lidocaine HCl (Lidocaine 1% 50 Ml Mdv) 50 ml INJECT ONETIME PRN PRN Reason: Laceration repair Methylergonovine Maleate (Methylergonovine 0.2 Mg/1 Ml Amp) 0.2 mg IM ASDIRECTED PRN PRN Reason: Post Hemorrhage Misoprostol (Misoprostol 200 Mcg Tab) 200 mcg PO ONETIME PRN PRN Reason: Post Hemorrhage Nalbuphine HCl (Nalbuphine 10 Mg/1 Ml Vial) 10 mg IVPUSH Q1H PRN PRN Reason: Pain (severe 7-10) Sterile Water (Water For Irrigation,Sterile 1,000 Ml Container) 1,000 ml IRR ASDIRECTED PRN PRN Reason: delivery - Infant Interaction Infant Disposition, : in Room with Family Infant Interaction: Holding Infant Feeding: Bottle Fed Infant (Will breastfeed one and bottle feed other, alternating each feed), Breastfed Infant; Nursed Well Support Person: - Recovery Exam Fundal Tone: Firm Fundal Level: 2 Fingerbreadths Below Umbilicus Fundal Placement: Midline Lochia Amount: Scant Lochia Color: Rubra/Red Perineum Description: Edematous Episiotomy/Laceration: None Bladder Status: Voiding Urinary Elimination: Voided - Exam General: Alert, Oriented, Cooperative, No Acute Distress HEENT: Pupils Equal, Pupils Reactive Neck: Supple Lungs: Clear to Auscultation, Normal Respiratory Effort Cardiovascular: Regular Rate, Regular Rhythm GI/Abdominal Exam: Normal Bowel Sounds, Soft, Non-Tender, No Distention Extremities: Normal Inspection, Normal Range of Motion, Non-Tender, Pedal Edema (Trace) Skin: Warm, Dry, Intact Wound/Incisions: Healing Well Neurological: No New Focal Deficit Psy/Mental Status: Alert, Normal Affect, Normal Mood - Problem List Review Problem List Initiated/Reviewed/Updated: Yes - Assessment Assessment:: Coco Sánchez is a 30 yo at 37w1d s/p of Di-Di twins. Post day 1. - Plan Plan:: Routine care * GBS negative, O positive, rubella immune * Gestational diabetes on metformin * Thrombocytopenia during * PO pain medication ordered PRN * Minimal bleeding, hemoglobin 12.5 this AM * Continue to monitor vaginal bleeding and symptoms * Encourage ambulation * Regular diet as tolerated * Plan circumcision for male * Breast and bottle feeding * Recheck CBC and 2 hour GTT 4 weeks * Plan for discharge today pending patient and both 's status * Follow up 4 weeks post <Jaci Jacobs - Last Filed: 12/12/20 09:22> - Patient Data Vital Signs - Most Recent: Last Vital Signs Temp 97.3 F 12/12/20 03:55 Pulse 70 12/12/20 03:55 Resp 16 12/12/20 03:55 BP 106/58 L 12/12/20 03:55 Pulse Ox 97 12/12/20 03:55 Lab Results - Last 24 Hours: Laboratory Results - last 24 hr 12/11/20 12/11/20 12/12/20 Range/Units 07:30 07:40 05:34 Hgb 12.5 (12.0-16.0) g/dL Hct 37.6 (36.0-46.0) % SARS-CoV-2 RNA (JOSE) NEGATIVE (NEGATIVE) Blood Type O POSITIVE Antibody Screen NEGATIVE Med Orders - Current: Current Medications Acetaminophen (Acetaminophen 500 Mg Tab) 500 mg PO Q4H PRN PRN Reason: Pain (mild 1-3) Acetaminophen (Acetaminophen 500 Mg Tab) 1,000 mg PO Q4H PRN PRN Reason: Pain (mild 1-3) Last Admin: 12/11/20 20:15 Dose: 1,000 mg Documented by: Benzocaine/Menthol (Benzocaine/Menthol 20%-0.5% [place] 78 Gm Cannister) 78 gm TOP ASDIRECTED PRN PRN Reason: Perineal Comfort Measure Last Admin: 12/11/20 15:30 Dose: 1 can Documented by: Bisacodyl (Bisacodyl 10 Mg Supp) 10 mg RECTAL ONETIME PRN PRN Reason: Constipation Docusate Sodium (Docusate Sodium 100 Mg Cap) 100 mg PO Q12H PRN PRN Reason: Constipation Last Admin: 12/11/20 20:15 Dose: 100 mg Documented by: Emollient Ointment (Lanolin 100% Cream 7 Gm Tube) 0 gm TOP ASDIRECTED PRN PRN Reason: Sore Nipples Ibuprofen (Ibuprofen 400 Mg Tab) 400 mg PO Q4H PRN PRN Reason: Pain (mild 1-3) Ibuprofen (Ibuprofen 800 Mg Tab) 800 mg PO Q6H PRN PRN Reason: Pain (mild 1-3) Last Admin: 12/12/20 08:34 Dose: 800 mg Documented by: Methylergonovine Maleate (Methylergonovine 0.2 Mg/1 Ml Amp) 0.2 mg IM ONETIME PRN PRN Reason: Excessive Vaginal Bleeding Oxycodone HCl (Oxycodone 5 Mg Tab) 5 mg PO Q2H PRN PRN Reason: Pain (severe 7-10) Sodium Chloride (Sodium Chloride 0.9% 10 Ml Syringe) 10 ml FLUSH ASDIRECTED PRN PRN Reason: Keep Vein Open Sodium Chloride (Sodium Chloride 0.9% 2.5 Ml Syringe) 2.5 ml FLUSH ASDIRECTED PRN PRN Reason: Keep Vein Open Sodium Chloride (Sodium Chloride 0.9% 10 Ml Sdv) 10 ml IV ASDIRECTED PRN PRN Reason: IV Use Witch Birgit (Witch Birgit Medicated Pads 40/Jar) 1 pad TOP ASDIRECTED PRN PRN Reason: comfort care Last Admin: 12/11/20 15:30 Dose: 1 tub Documented by: Discontinued Medications Bupivacaine HCl (Bupivacaine 0.25% 30 Ml Sdv) Confirm Administered Dose 30 ml .ROUTE .STK-MED ONE Stop: 12/11/20 07:37 Last Admin: 12/11/20 20:42 Dose: Not Given Documented by: Butorphanol Tartrate (Butorphanol 1 Mg/Ml Sdv) 1 mg IVPUSH Q1H PRN PRN Reason: Pain (severe 7-10) Carboprost Tromethamine (Carboprost Tromethamine 250 Mcg/1 Ml Amp) 250 mcg IM ASDIRECTED PRN PRN Reason: Post Hemorrhage Cefazolin Sodium (Cefazolin 1 Gm Vial) Confirm Administered Dose 2 gm .ROUTE .STK-MED ONE Stop: 12/11/20 10:54 Fentanyl (Fentanyl 100 Mcg/2 Ml Sdv) Confirm Administered Dose 100 mcg .ROUTE .STK-MED ONE Stop: 12/11/20 10:39 Ropivacaine (Naropin 0.2%) Confirm Administered Dose 200 mls @ as directed .ROUTE .[facility]-MED ONE Stop: 12/11/20 07:37 Last Admin: 12/11/20 20:42 Dose: Not Given Documented by: Lactated Ringer's (Ringers, Lactated) 1,000 mls @ 150 mls/hr IV ASDIRECTED [facility] Last Admin: 12/11/20 08:15 Dose: 150 mls/hr Documented by: Oxytocin/Sodium Chloride (Oxytocin 30 Unit/500 Ml-Ns) 30 unit in 500 mls @ 999 mls/hr IV TITRATE [facility] Last Admin: 12/11/20 10:52 Dose: 250 mls/hr Documented by: Tranexamic Acid 1,000 mg/ (Sodium Chloride) 110 mls @ 660 mls/hr IV ONETIME PRN PRN Reason: Bleeding Last Admin: 12/11/20 11:09 Dose: 660 mls/hr Documented by: Sodium Chloride (Normal Saline) Confirm Administered Dose 100 mls @ as directed .ROUTE .ST-MED ONE Stop: 12/11/20 11:09 Last Admin: 12/11/20 20:42 Dose: Not Given Documented by: Lidocaine HCl (Lidocaine 1% 50 Ml Mdv) 50 ml INJECT ONETIME PRN PRN Reason: Laceration repair Methylergonovine Maleate (Methylergonovine 0.2 Mg/1 Ml Amp) 0.2 mg IM ASDIRECTED PRN PRN Reason: Post Hemorrhage Misoprostol (Misoprostol 200 Mcg Tab) 200 mcg PO ONETIME PRN PRN Reason: Post Hemorrhage Nalbuphine HCl (Nalbuphine 10 Mg/1 Ml Vial) 10 mg IVPUSH Q1H PRN PRN Reason: Pain (severe 7-10) Sterile Water (Water For Irrigation,Sterile 1,000 Ml Container) 1,000 ml IRR ASDIRECTED PRN PRN Reason: delivery - My Orders Last 24 Hours: My Active Orders 12/11/20 11:25 Acetaminophen [Tylenol Extra Strength] 1,000 mg PO Q4H PRN Acetaminophen [Tylenol Extra Strength] 500 mg PO Q4H PRN Benzocaine/Menthol [Dermoplast Pain Relief 20%-0.5% [place]] 78 gm TOP ASDIRECTED PRN Docusate Sodium [Colace] 100 mg PO Q12H PRN Ibuprofen [Motrin] 400 mg PO Q4H PRN Ibuprofen [Motrin] 800 mg PO Q6H PRN Lanolin [Lansinoh HPA] See Dose Instructions TOP ASDIRECTED PRN Methylergonovine [Methergine] 0.2 mg IM ONETIME PRN bisacodyL [Dulcolax] 10 mg RECTAL ONETIME PRN oxyCODONE 5 mg PO Q2H PRN witch Birgit [Tucks] 1 pad TOP ASDIRECTED PRN 12/11/20 11:26 Patient Status [ADT] Routine May Shower [RC] ASDIRECTED Up ad Brigitte [RC] ASDIRECTED Vital Signs [RC] PER UNIT ROUTINE Assess Lochia [WOMSER] Per Unit Routine Assess Uterine Involution [WOMSER] Per Unit Routine Peripheral IV Discontinue [OM.PC] Routine - Plan Plan:: Agree with above. Anticipate discharge today pending maternal/infant status. Discharge precautions reviewed. Follow up at [facility] in 4 weeks
[2020-12-12] MEDS: Ibuprofen 800 MG Tab PO PRN (08:34)
[2020-12-12] MEDS: Acetaminophen 500 MG Tab PO PRN (14:08)
== END 2020-12-12 17:30 | disposition home or self-care (01) | DRG 806 ==
LOC: MW.OBCHECK 06:42 → MW.OB 06:45 → MW.OBCHECK 11:00 → OBSVTOIN 11:01 → MW.OB 11:01
PROVIDERS: ADMIT Obstetrics & Gynecology; ATTEND Obstetrics & Gynecology
PROC: 10E0XZZ Delivery of Products of Conception, External Approach (ICD-10-PCS; principal; 2020-12-11)
PROC: 0HQ9XZZ Repair Perineum Skin, External Approach (ICD-10-PCS; 2020-12-11)
PROC: 3E0R3BZ Introduction of Anesthetic Agent into Spinal Canal, Percutaneous Approach (ICD-10-PCS; 2020-12-11)
PROC: 0HQ9XZZ Repair Perineum Skin, External Approach (ICD-10-PCS; 2020-12-11)
PROC: 4A1HXCZ Monitoring of Products of Conception, Cardiac Rate, External Approach (ICD-10-PCS; 2020-12-11)
DX: O30.043 Twin pregnancy, dichorionic/diamniotic, third trimester (principal); O99.12 Other diseases of the blood and blood-forming organs and certain disorders involving the immune mechanism complicating childbirth; Z37.2 Twins, both liveborn; Z3A.36 36 weeks gestation of pregnancy; O24.425 Gestational diabetes mellitus in childbirth, controlled by oral hypoglycemic drugs; D69.6 Thrombocytopenia, unspecified; O32.1XX2 Maternal care for breech presentation, fetus 2; O69.81X2 Labor and delivery complicated by cord around neck, without compression, fetus 2; O70.0 First degree perineal laceration during delivery; Z20.822 Contact with and (suspected) exposure to COVID-19
CPT/HCPCS: 36415; 51701; 51702; 59025; 59409; 82947; 85014; 85018; 85027; 86592; 86850; 86900; 86901; 88307; A9270-GY; J0690; J2590; J2795; J3010; J3490; J7120; U0002

== ENCOUNTER 2020-12-16 19:51 | Inpatient (IN) | payer MEDICAID ==
[2020-12-16] MEDS ORDERED: Sodium Chloride 0.9% 10 ML Syringe FLUSH PRN (20:23)
[2020-12-16] MEDS ORDERED: Sodium Chloride 0.9% 2.5 ML Syringe FLUSH PRN (20:23)
[2020-12-16] MEDS ORDERED: Sodium Chloride 0.9% 1,000 ML IV ONE (20:23)
--- NOTE | 2020-12-16 20:32 | PCM.EKG ---
#1 Interpretation EKG Interpretation Comments: EKG date December 17, 2019 1:24 PM EKG: As interpreted by ER physician: Geoffrey: Nonspecific ST-T wave abnormalities Normal axis No evidence of ST elevation DC Sinus bradycardia with a heart rate of 46
[2020-12-16 21:04] LABS: BLOOD UREA NITROGEN,BUN 13 mg/dL (7.0-18.0); CARBON DIOXIDE,CO2 25.1 mmol/L (21.0-32.0); CHLORIDE,CL 106 mmol/L (98-107); GLUCOSE RANDOM 91 mg/dL (74-106); POTASSIUM,K 4.4 mmol/L (3.5-5.1); SODIUM,NA 139 mmol/L (136-145)
--- NOTE | 2020-12-16 21:30 | EDM.PDOC ---
<Derik Hale - Last Filed: 12/17/20 00:10> ED HPI GENERAL MEDICAL PROBLEM - General Chief Complaint: General Stated Complaint: DIZZY HEAD PAIN CHEST PAIN Time Seen by Provider: 12/16/20 19:55 - History of Present Illness INITIAL COMMENTS - FREE TEXT/NARRATIVE: 12:10 AM: Signout received at 11 PM. This is a 30-year-old female who is from twin gestation approximately 5 days ago who presents ER today secondary to generalized weakness, dizziness, headache and was noted to have significantly elevated blood pressure. Patient's remainder of her work-up is been unremarkable here in the ED. Patient's presentation appears to be consistent with preeclampsia. I have discussed the case with Dr. Jeff who agrees with the plan for admission. I have initiated the /hypertension protocol with magnesium 4 g IV over 20 minutes followed by a magnesium drip. Given that the patient's blood pressure has been consistently elevated, we have initiated IV hydralazine secondary to her b radycardia. I have discussed the plan with the patient and she agrees currently with admission Critical Care: The high probability of sudden, clinically significant deterioration in the patient's condition required the highest level of my preparedness to intervene urgently. The services I provided to this patient were to treat and/or prevent clinically significant deterioration. Services included the following: chart data review, reviewing nursing notes and/or old charts, documentation time, insurance consultant collaboration regarding findings and treatment options, medication orders and management, direct patient care, vital sign assessments and ordering, interpreting and reviewing diagnostic studies/lab tests. Aggregate critical care time includes only time during which I was engaged inwork directly related to the patient's care, as described above, whether at the bedside or elsewhere in the Emergency Department. It did not include time spent performing other reported procedures or the services of residents, students, nurses or physician assistants. Critical Care Time: 35 minutes - Related Data Allergies Allergy/AdvReac Type Severity Reaction Status Date / Time No Known Allergies Allergy Verified 12/16/20 20:15 Home Meds: Home Meds Ferrous Sulfate, Dried [Iron] 160 mg PO DAILY 12/11/20 [History] Vits #93/Iron Fum/FA [ Formula Tablet] 1 each PO DAILY 12/11/20 [History] metFORMIN [Glucophage] 500 mg PO BIDMEALS 08/15/21 [History] ED ROS GENERAL - Review of Systems Review Of Systems: See Below ED EXAM, GENERAL - Physical Exam Exam: See Below Departure - Departure Time of Disposition: 00:12 Disposition: Admitted As Inpatient 64 Condition: Fair Clinical Impression: Preeclampsia in period - Discharge Information <Opal Salcedo - Last Filed: 12/17/20 13:42> ED HPI GENERAL MEDICAL PROBLEM - General Source of Information: Reports: Patient History Limitations: Reports: No Limitations - History of Present Illness INITIAL COMMENTS - FREE TEXT/NARRATIVE: HISTORY AND PHYSICAL: History of present illness: Patient is a 30-year-old female who presents emergency room today with concern of dizziness, chest pain, shortness of breath that started today with being 5 months to twin . Patient states her was complicated by gestational diabetes and thrombocytopenia. Patient states that she did deliver the twins vaginally and states that the first baby was had down but the second baby was a breech delivery and they had to "reach her hand inside to get the baby down ". Patient states that she was discharged home and has been feeling fine until this morning when she started to "feel off ". Patient states she felt a sensation at the base of her throat like her heart rate was going slow and put on her apple watch and states that her heart rate was in the 40s to 50s which is unusual for her. Patient states all day that she has felt a chest heaviness, shortness of breath, and dizziness sensation and feels like something was not right so came to the emergency room. Patient states that this is her fourth and has never had this occur before. Patient states that she followed at [facility] for her care and delivery. Patient states that she is breast-feeding. Patient states that she has been having abdominal pain since her discharge from the hospital and does feel like her abdominal pain is worse each day instead of improving. Patient states that she has nearly stopped bleeding vaginally and does not express heavy vaginal bleeding. Patient states that she has been swollen since discharge from the hospital but feels that this has improved of her lower extremities. Patient denies fever, chills, or cough. Denies headache, neck stiff ness, change in vision, syncope, or near syncope. Denies nausea, vomiting, diarrhea, cons tipation, or dysuria. Has not noted any blood in urine or stool. Patient has been eating and drinking appropriately. Review of systems: As per history of present illness and below otherwise all systems reviewed and negative. Past medical history: As per history of present illness and as reviewed below otherwise noncontributory. Surgical history: As per history of present illness and as reviewed below otherwise noncontributory. Social history: See social history for further information Family history: As per history of present illness and as reviewed below otherwise noncontributory. Physical exam: General: Patient is alert, oriented, and in no acute distress. Patient laying comfortably on exam table. Patient bradycardic 48 on exam and hypertensive 160s/90s, otherwise vitally stable and reviewed by me. HEENT: Atraumatic, normocephalic, pupils equal and reactive bilaterally, negative for conjunctival pallor or scleral icterus, mucous membranes moist, TMs normal bilaterally, throat clear, neck supple, nontender, trachea midline. No drooling or trismus noted. No meningeal signs. No hot potato voice noted. Lungs: Clear to auscultation, breath sounds equal bilaterally, chest nontender. Heart: S1S2, regular rate and rhythm without overt murmur Abdomen: Soft, nondistended, mild to moderate bilateral lower extreme abdominal tenderness without guarding, negative pedraza/rebound. Negative for masses or hepatosplenomegaly. Negative for costovertebral tenderness. Pelvis: Stable nontender. Genitourinary: Deferred. Rectal: Deferred. Skin: Intact, warm, dry. No lesions or rashes noted. Extremities: 2+ pitting edema to bilateral shins. Otherwise, Atraumatic, negative for cords or calf pain. Neurovascular unremarkable. Neuro: Awake, alert, oriented. Cranial nerves II through XII unremarkable. Cerebellum unremarkable. Motor and sensory unremarkable throughout. Exam nonfocal. Notes: Patient is a 30-year-old female who presents emergency room secondary to dizziness, shortness of breath, chest pain, since this morning and worsening lower abdominal pain since discharge from the hospital status post of twin . Upon arrival to the ED, patient is noted to be bradycardic 48 on exam and hypertensive 160s over 90s is otherwise vitally stable. Patient does have mild to moderate lower abdominal tenderness and 2+ non pitting edema of bilateral lower extremities. On chart review from patient's hospital stay, patient does not have any hypotensive or bradycardic episodes that I am able to see on charting. Patient also appears to have gestational diabetes, and thrombocytopenia in her . Patient's hospital stay otherwise appears unremarkable on chart review. Will obtain cardiac evaluation, chest x-ray and reassess patient. See Dr. Hale dictation for specific EKG interpretation. However, sinus bradycardia without STEMI or acute changes. CBC mild arrangements are unremarkable. CMP mild derangements unremarkable, troponin negative. Lipase within normal limits. Otherwise mild derangements of CMP unremarkable. D-dimer elevated at 3.79. Will obtain angiography CT of chest. BNP is elevated at 208. Urinalysis was clear of infection. Chest x-ray shows moderate pulmonary vascular congestion a mild left basilar atelectasis seen. Mild cardiomegaly noted. Dr. Hale has assumed care of patient and will follow remaining diagnostics and disposition for patient. Pending Magnesium, and Ang Chest/abd/pelvic ct w cont Diagnostics: EKG, CBC, CMP, UA, CXR, Trop, Ddimer, Lipase, Mg, Ang CT Chest, Abd/Pelvic CT w cont Therapeutics: NS Prescription: Impression: Pulmonary vascular congestion Post bradycardia Post hypertension / preeclampsia Chest pain Dyspnea Dizziness Abdominal pain Plan: Definitive disposition and diagnosis as appropriate pending reevaluation and review of above. 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 Musculoskeletal History: Reports: None Neurological History: Reports: None Psychiatric History: Reports: None Endocrine/Metabolic History: Reports: Diabetes, Gestational Insulin Pump Model and Control Officer Manager: None Hematologic History: Reports: Anemia, Other (See Below) Other Hematologic History: Gestational thrombocytopenia Immunologic History: Reports: None Oncologic (Cancer) History: Reports: None Dermatologic History: Reports: None - Infectious Disease History Infectious Disease History: Reports: Chicken Pox - Past Surgical History Head Surgeries/Procedures: Reports: None Endocrine Surgical History: Reports: None Oncologic Surgical History: Reports: Other (See Below) Other Oncologic Surgeries/Procedures: mole removal for biopsy: benign Dermatological Surgical History: Reports: None Social & Family History - Family History Family Medical History: No Pertinent Family History - Caffeine Use Caffeine Use: Reports: None - Recreational Drug Use Recreational Drug Use: No ED ROS GENERAL - Review of Systems Review Of Systems: Comprehensive ROS is negative, except as noted in HPI. ED EXAM, GENERAL - Physical Exam Exam: See Below (see dictation) Course - Vital Signs Last Recorded V/S: Last Vital Signs Temp 98.4 F 12/17/20 05:10 Pulse 54 L 12/17/20 07:10 Resp 16 12/17/20 07:10 BP 118/70 12/17/20 07:10 Pulse Ox 97 12/17/20 07:10 - Orders/Labs/Meds Orders: Active Orders 24 hr Category Date Time Status Bedrest [RC] ASDIRECTED Care 12/16/20 23:46 Active Notify Provider Status Change [RC] ASDIRECTED Care 12/16/20 23:46 Active Vital Signs [RC] ASDIRECTED Care 12/16/20 23:46 Active Magnesium Sulfate/Water [Magnesium Sulfate in Water 20 Med 12/16/20 23:45 Active GM/500 ML] 20 gm in 500 ml IV ASDIRECTED Sodium Chloride 0.9% [Saline Flush] Med 12/16/20 20:23 Active 10 ml FLUSH ASDIRECTED PRN Sodium Chloride 0.9% [Saline Flush] Med 12/16/20 20:23 Active 2.5 ml FLUSH ASDIRECTED PRN hydrALAZINE [Apresoline] Med 12/16/20 23:46 Active 5 mg IVPUSH Q20M PRN Saline Lock Insert [OM.PC] Stat Oth 12/16/20 20:23 Ordered Medication Orders Acetaminophen (Acetaminophen 500 Mg Tab) 1,000 mg PO Q6H PRN PRN Reason: Headache Last Admin: 12/17/20 11:02 Dose: 1,000 mg Documented by: Admin: 12/17/20 04:55 Dose: 1,000 mg Documented by: HIPOLITO Calcium Gluconate (Calcium Gluconate 10% 1 Gm/10 Ml Sdv) 1 gm IV ASDIRECTED PRN PRN Reason: respiratory distress Hydralazine HCl (Hydralazine 20 Mg/Ml Sdv) 5 mg IVPUSH Q20M PRN PRN Reason: Hypertension Last Admin: 12/17/20 00:03 Dose: 5 mg Documented by: MINO Magnesium Sulfate (Magnesium Sulfate In Water 20 Gm/500 Ml) 20 gm in 500 mls @ 50 mls/hr IV ASDIRECTED ROMA Last Admin: 12/17/20 11:00 Dose: 2 gm/hr, 50 mls/hr Documented by: Infusion: 12/17/20 10:22 Dose: 2 gm/hr, 50 mls/hr Documented by: Admin: 12/17/20 00:22 Dose: 2 gm/hr, 50 mls/hr Documented by: MINO Sodium Chloride (Sodium Chloride 0.9% 10 Ml Syringe) 10 ml FLUSH ASDIRECTED PRN PRN Reason: Keep Vein Open Sodium Chloride (Sodium Chloride 0.9% 2.5 Ml Syringe) 2.5 ml FLUSH ASDIRECTED PRN PRN Reason: Keep Vein Open Sodium Chloride (Sodium Chloride 0.9% 10 Ml Syringe) 10 ml FLUSH ASDIRECTED PRN PRN Reason: Keep Vein Open Sodium Chloride (Sodium Chloride 0.9% 2.5 Ml Syringe) 2.5 ml FLUSH ASDIRECTED PRN PRN Reason: Keep Vein Open Sodium Chloride (Sodium Chloride 0.9% 10 Ml Sdv) 10 ml IV ASDIRECTED PRN PRN Reason: IV Use Labs: Laboratory Tests 12/16/20 12/16/20 12/16/20 Range/Units 20:20 20:20 20:30 WBC 4.43 (4.0-11.0) K/uL RBC 4.64 (4.30-5.90) M/uL Hgb 13.2 (12.0-16.0) g/dL Hct 39.0 (36.0-46.0) % MCV 84.1 (80.0-98.0) fL MCH 28.4 (27.0-32.0) pg MCHC 33.8 (31.0-37.0) g/dL RDW Std Deviation 50.4 (28.0-62.0) fl RDW Coeff of Markell 17 H (11.0-15.0) % Plt Count 165 (150-400) K/uL MPV 11.20 (7.40-12.00) fL Neut % (Auto) 48.1 (48.0-80.0) % Lymph % (Auto) 38.8 (16.0-40.0) % [place] % (Auto) 9.3 (0.0-15.0) % Eos % (Auto) 3.6 (0.0-7.0) % Baso % (Auto) 0.2 (0.0-1.5) % Neut # (Auto) 2.1 (1.4-5.7) K/uL Lymph # (Auto) 1.7 (0.6-2.4) K/uL [place] # (Auto) 0.4 (0.0-0.8) K/uL Eos # (Auto) 0.2 (0.0-0.7) K/uL Baso # (Auto) 0.0 (0.0-0.1) K/uL Nucleated RBC % 0.0 /100WBC Nucleated RBCs # 0 K/uL D-Dimer, Quantitative 3.79 H (0.0-0.50) mg/L FEU Sodium (136-145) mmol/L Potassium (3.5-5.1) mmol/L Chloride (98-107) mmol/L Carbon Dioxide (21.0-32.0) mmol/L BUN (7.0-18.0) mg/dL Creatinine (0.6-1.0) mg/dL Est Cr Clr Drug Dosing Estimated GFR (MDRD) ml/min Glucose (74-106) mg/dL POC Glucose (70-99) mg/dL Calcium (8.5-10.1) mg/dL Magnesium (1.8-2.4) mg/dL Total Bilirubin (0.2-1.0) mg/dL AST (15-37) IU/L ALT (14-63) IU/L Alkaline Phosphatase (46-116) U/L Troponin I (0.000-0.056) ng/mL B-Natriuretic Peptide (<100) PG/ML Total Protein (6.4-8.2) g/dL Albumin (3.4-5.0) g/dL Globulin (2.6-4.0) g/dL Albumin/Globulin Ratio (0.9-1.6) Lipase 112 (73-393) U/L Urine Color Urine Appearance Urine pH (5.0-8.0) Ur Specific [place] (1.001-1.035) Urine Protein (NEGATIVE) mg/dL Urine Glucose (UA) (NEGATIVE) mg/dL Urine Ketones (NEGATIVE) mg/dL Urine Occult Blood (NEGATIVE) Urine Nitrite (NEGATIVE) Urine Bilirubin (NEGATIVE) Urine Urobilinogen (<2.0) EU/dL Ur Leukocyte Esterase (NEGATIVE) Urine RBC (0-2/HPF) Urine WBC (0-5/HPF) Ur Epithelial Cells (NONE-FEW) Urine Bacteria (NEGATIVE) Ur Random Creatinine mg/dL U Random Total Protein (<11.9) mg/dL Protein/Creatinin Ratio 12/16/20 12/16/20 12/16/20 Range/Units 20:30 20:30 20:30 WBC (4.0-11.0) K/uL RBC (4.30-5.90) M/uL Hgb (12.0-16.0) g/dL Hct (36.0-46.0) % MCV (80.0-98.0) fL MCH (27.0-32.0) pg MCHC (31.0-37.0) g/dL RDW Std Deviation (28.0-62.0) fl RDW Coeff of Markell (11.0-15.0) % Plt Count (150-400) K/uL MPV (7.40-12.00) fL Neut % (Auto) (48.0-80.0) % Lymph % (Auto) (16.0-40.0) % [place] % (Auto) (0.0-15.0) % Eos % (Auto) (0.0-7.0) % Baso % (Auto) (0.0-1.5) % Neut # (Auto) (1.4-5.7) K/uL Lymph # (Auto) (0.6-2.4) K/uL [place] # (Auto) (0.0-0.8) K/uL Eos # (Auto) (0.0-0.7) K/uL Baso # (Auto) (0.0-0.1) K/uL Nucleated RBC % /100WBC Nucleated RBCs # K/uL D-Dimer, Quantitative (0.0-0.50) mg/L FEU Sodium 139 (136-145) mmol/L Potassium 4.4 (3.5-5.1) mmol/L Chloride 106 (98-107) mmol/L Carbon Dioxide 25.1 (21.0-32.0) mmol/L BUN 13 (7.0-18.0) mg/dL Creatinine 0.7 (0.6-1.0) mg/dL Est Cr Clr Drug Dosing TNP Estimated GFR (MDRD) > 60.0 ml/min Glucose 91 (74-106) mg/dL POC Glucose (70-99) mg/dL Calcium 8.9 (8.5-10.1) mg/dL Magnesium 1.7 L (1.8-2.4) mg/dL Total Bilirubin 0.3 (0.2-1.0) mg/dL AST 27 (15-37) IU/L ALT 33 (14-63) IU/L Alkaline Phosphatase 95 (46-116) U/L Troponin I < 0.050 (0.000-0.056) ng/mL B-Natriuretic Peptide 208 H (<100) PG/ML Total Protein 5.9 L (6.4-8.2) g/dL Albumin 2.6 L (3.4-5.0) g/dL Globulin 3.3 (2.6-4.0) g/dL Albumin/Globulin Ratio 0.8 L (0.9-1.6) Lipase (73-393) U/L Urine Color Urine Appearance Urine pH (5.0-8.0) Ur Specific [place] (1.001-1.035) Urine Protein (NEGATIVE) mg/dL Urine Glucose (UA) (NEGATIVE) mg/dL Urine Ketones (NEGATIVE) mg/dL Urine Occult Blood (NEGATIVE) Urine Nitrite (NEGATIVE) Urine Bilirubin (NEGATIVE) Urine Urobilinogen (<2.0) EU/dL Ur Leukocyte Esterase (NEGATIVE) Urine RBC (0-2/HPF) Urine WBC (0-5/HPF) Ur Epithelial Cells (NONE-FEW) Urine Bacteria (NEGATIVE) Ur Random Creatinine mg/dL U Random Total Protein (<11.9) mg/dL Protein/Creatinin Ratio 12/16/20 12/16/20 12/16/20 Range/Units 20:33 21:15 21:15 WBC (4.0-11.0) K/uL RBC (4.30-5.90) M/uL Hgb (12.0-16.0) g/dL Hct (36.0-46.0) % MCV (80.0-98.0) fL MCH (27.0-32.0) pg MCHC (31.0-37.0) g/dL RDW Std Deviation (28.0-62.0) fl RDW Coeff of Markell (11.0-15.0) % Plt Count (150-400) K/uL MPV (7.40-12.00) fL Neut % (Auto) (48.0-80.0) % Lymph % (Auto) (16.0-40.0) % [place] % (Auto) (0.0-15.0) % Eos % (Auto) (0.0-7.0) % Baso % (Auto) (0.0-1.5) % Neut # (Auto) (1.4-5.7) K/uL Lymph # (Auto) (0.6-2.4) K/uL [place] # (Auto) (0.0-0.8) K/uL Eos # (Auto) (0.0-0.7) K/uL Baso # (Auto) (0.0-0.1) K/uL Nucleated RBC % /100WBC Nucleated RBCs # K/uL D-Dimer, Quantitative (0.0-0.50) mg/L FEU Sodium (136-145) mmol/L Potassium (3.5-5.1) mmol/L Chloride (98-107) mmol/L Carbon Dioxide (21.0-32.0) mmol/L BUN (7.0-18.0) mg/dL Creatinine (0.6-1.0) mg/dL Est Cr Clr Drug Dosing Estimated GFR (MDRD) ml/min Glucose (74-106) mg/dL POC Glucose 83 (70-99) mg/dL Calcium (8.5-10.1) mg/dL Magnesium (1.8-2.4) mg/dL Total Bilirubin (0.2-1.0) mg/dL AST (15-37) IU/L ALT (14-63) IU/L Alkaline Phosphatase (46-116) U/L Troponin I (0.000-0.056) ng/mL B-Natriuretic Peptide (<100) PG/ML Total Protein (6.4-8.2) g/dL Albumin (3.4-5.0) g/dL Globulin (2.6-4.0) g/dL Albumin/Globulin Ratio (0.9-1.6) Lipase (73-393) U/L Urine Color YELLOW Urine Appearance CLEAR Urine pH 6.0 (5.0-8.0) Ur Specific [place] 1.010 (1.001-1.035) Urine Protein NEGATIVE (NEGATIVE) mg/dL Urine Glucose (UA) NEGATIVE (NEGATIVE) mg/dL Urine Ketones NEGATIVE (NEGATIVE) mg/dL Urine Occult Blood SMALL H (NEGATIVE) Urine Nitrite NEGATIVE (NEGATIVE) Urine Bilirubin NEGATIVE (NEGATIVE) Urine Urobilinogen 0.2 (<2.0) EU/dL Ur Leukocyte Esterase NEGATIVE (NEGATIVE) Urine RBC 0-1 (0-2/HPF) Urine WBC 0-1 (0-5/HPF) Ur Epithelial Cells RARE (NONE-FEW) Urine Bacteria RARE (NEGATIVE) Ur Random Creatinine 25.6 mg/dL U Random Total Protein < 6.0 (<11.9) mg/dL Protein/Creatinin Ratio TNP Meds: Medications Generic Name Dose Route Start Last Admin Trade Name Freq PRN Reason Stop Dose Admin Acetaminophen 1,000 mg 12/17/20 04:35 12/17/20 11:02 Acetaminophen 500 Mg Tab PO 1,000 mg Q6H PRN Administration Headache Calcium Gluconate 1 gm 12/17/20 03:08 Calcium Gluconate 10% 1 Gm/10 Ml Sdv IV ASDIRECTED PRN respiratory distress Hydralazine HCl 5 mg 12/16/20 23:46 12/17/20 00:03 Hydralazine 20 Mg/Ml Sdv IVPUSH 5 mg Q20M PRN Administration Hypertension Magnesium Sulfate 20 gm in 500 mls @ 50 mls/hr 12/16/20 23:45 12/17/20 11:00 Magnesium Sulfate In Water 20 Gm/500 Ml IV 2 gm/hr ASDIRECTED ROMA 50 mls/hr Administration 2 GM/HR Sodium Chloride 10 ml 12/16/20 20:23 Sodium Chloride 0.9% 10 Ml Syringe FLUSH ASDIRECTED PRN Keep Vein Open Sodium Chloride 2.5 ml 12/16/20 20:23 Sodium Chloride 0.9% 2.5 Ml Syringe FLUSH ASDIRECTED PRN Keep Vein Open Sodium Chloride 10 ml 12/17/20 03:08 Sodium Chloride 0.9% 10 Ml Syringe FLUSH ASDIRECTED PRN Keep Vein Open Sodium Chloride 2.5 ml 12/17/20 03:08 Sodium Chloride 0.9% 2.5 Ml Syringe FLUSH ASDIRECTED PRN Keep Vein Open Sodium Chloride 10 ml 12/17/20 03:08 Sodium Chloride 0.9% 10 Ml Sdv IV ASDIRECTED PRN IV Use Discontinued Medications Generic Name Dose Route Start Last Admin Trade Name Freq PRN Reason Stop Dose Admin Sodium Chloride 1,000 mls @ 999 mls/hr 12/16/20 20:23 12/16/20 20:40 Normal Saline IV 12/16/20 21:23 999 mls/hr .Bolus ONE Administration Magnesium Sulfate 4 gm/ Premix 100 mls @ 300 mls/hr 12/16/20 23:46 12/17/20 00:03 IV 12/17/20 00:05 300 mls/hr BOLUS ONE Administration Iopamidol 100 ml 12/16/20 22:52 12/16/20 22:52 Iopamidol 755 Mg/Ml 500 Ml Multipack Bottle IVPUSH 12/16/20 22:53 100 ml ONETIME STA Administration
--- NOTE | 2020-12-16 21:36 | CR ---
INDICATION: Shortness of breath, chest pain, 5 days post TECHNIQUE: Chest radiograph 1 view COMPARISON: None FINDINGS: Mediastinum: The mediastinum is normal in appearance. Mild cardiomegaly is noted. Lung: Moderate pulmonary vascular congestion and mild left basilar atelectasis seen. No sign of pleural effusion seen. No pneumothorax is identified. Bone and Soft tissue: Unremarkable for age. IMPRESSIONS: 1. Moderate pulmonary vascular congestion and mild left basilar atelectasis seen. 2. Mild cardiomegaly is noted. Dictated by Willy Dominguez MD @ 12/16/2020 9:34:10 PM Dictated by: Willy Dominguez MD @ 12/16/2020 21:34:15 (Electronically Signed)
[2020-12-16] MEDS ORDERED: Iopamidol 755 MG/ML 500 ML Multipack Bottle IVPUSH STA (22:52)
--- NOTE | 2020-12-16 23:32 | CT ---
INDICATION: Elevated D-dimer. Chest pain. Abdominal pain. PP. CT CHEST, ABDOMEN, AND PELVIS WITH CONTRAST TECHNIQUE: Multidetector CT imaging was performed through the chest, abdomen, and pelvis following intravenous contrast administration using 100 mL Isovue 370. Coronal and sagittal reconstructions were generated. COMPARISON: None. FINDINGS: Lungs and airways: Mild dependent and basilar lung atelectasis bilaterally. No confluent infiltrates, suspicious nodules, or masses. Central airways are patent. Pleura and pleural spaces: No pleural effusions or pneumothorax. Heart and mediastinum: Upper normal heart size. No significant pericardial effusion. No pathologically enlarged mediastinal lymph nodes. Vascular structures: No filling defects in the pulmonary arterial tree to suggest pulmonary emboli. Normal caliber aorta. Chest wall and axillae: No mass or axillary lymphadenopathy. Liver and spleen: Within normal limits. Gallbladder and bile ducts: Cholelithiasis without evidence of cholecystitis. No biliary dilation identified. Pancreas, adrenals, and retroperitoneum: No pancreatic or adrenal mass. No pathologically enlarged lymph nodes identified in the abdomen or pelvis. Kidneys, ureters, and urinary bladder: No renal masses or hydronephrosis. No bladder mass or definite wall thickening. Gastrointestinal tract and peritoneum: Normal caliber bowel without wall thickening. Normal appendix. Nonspecific minimal amount of free fluid in the pelvis. No free air identified in the abdomen or pelvis. Reproductive organs: uterine enlargement measuring 19 x 10 x 13 centimeters. Prominent central hypodensity within the uterus could represent fluid or hemorrhage within the endometrial cavity. Bones: Normal for age. IMPRESSION: 1. uterine enlargement measuring 19 x 10 x 13 centimeters. 2. Moderate prominence of central hypodensity within the uterus, possibly representing fluid or hemorrhage within the endometrial cavity. Consider pelvic ultrasound for further evaluation. 3. Cholelithiasis, without evidence of cholecystitis. 4. No acute intrathoracic findings. No evidence of pulmonary emboli. GEM VALLES MD [facility] Dictated by Reyes Valles MD @ 12/16/2020 11:26:42 PM Please note that all CT scans at this facility use dose modulation, iterative reconstruction, and/or weight-based dosing when appropriate to reduce radiation dose to as low as reasonably achievable. Dictated by: Reyes Valles MD @ 12/16/2020 23:30:40 (Electronically Signed)
[2020-12-16] MEDS ORDERED: hydrALAZINE 20 MG/ML SDV IVPUSH PRN (23:46)
[2020-12-16] MEDS ORDERED: Magnesium Sulfate/Water 4 GM in Premix Bag 1 BAG IV ONE (23:46)
[2020-12-17] MEDS: Magnesium Sulfate/Water 20 GM/500 ML BAG IV SCH ×3 (00:22→22:03)
[2020-12-17] MEDS ORDERED: Sodium Chloride 0.9% 2.5 ML Syringe FLUSH PRN (03:08)
[2020-12-17] MEDS ORDERED: Sodium Chloride 0.9% 10 ML Syringe FLUSH PRN (03:08)
[2020-12-17] MEDS ORDERED: Calcium Gluconate 10% 1 GM/10 ML SDV IV PRN (03:08)
[2020-12-17] MEDS ORDERED: Sodium Chloride 0.9% 10 ML SDV IV PRN (03:08)
[2020-12-17] MEDS: Acetaminophen 500 MG Tab PO PRN ×3 (04:55→18:18)
--- NOTE | 2020-12-17 09:27 | PCM.LDHP ---
L&D History of Present Illness - General Date of Service: 12/17/20 Admit Problem/Dx: Patient Status Order with Admit Dx/Problem H&P Chief Complains Dizziness and Low heart rate Hypertension Source of Information: Patient History Limitations: Reports: No Limitations - History of Present Illness Introduction:: HPI 30yo P4015 s/p twin vaginal delivery PPD6 , presented to the ER with complains of dizziness for 1 day and bradycardia. She had a Twin vaginal . Antepartum was complicated by Gestational DM and thrombocytopenia. She had no elevated BP antepartum Patient was evaluated by ER doctor and noted to have BPs 160s /60 - 90s . IV hydralazine 5mg , BP normalized afterward. After that Magnessium started for patient. She also complains of headache. She had SOB and chest pain which was resolved . CT scan done - negative for PE and Chest Xray showed mild cardiomegaly with congestion of pulmonary vasculature, mild left atelectasis PMH: GDM, Gestational thrombocytopenia PSH: Nil Allergy: NIl Exam; General : NAD Chest: CTA BL Abdomen: NAD Pelvic: Deferred . BPs now : 110s - 120s/60s - 70s , HR : 60s A/P 30yo P4015 with hypertension with severe features , PPD 5 Plan PIH labs reviewed wnl IV magnessium for seizure prophylaxis Monitor I & O Hydralazine 5mg prn Clear diet Recommend resting for now and having spouse take care of babies SCD 12/17/20 09:28 Pain Score: 8 Improves with: Reports: None Worsens with: Reports: None - Related Data Allergies/Adverse Reactions: Allergies Allergy/AdvReac Type Severity Reaction Status Date / Time No Known Allergies Allergy Verified 12/16/20 20:15 Home Medications: Home Meds Ferrous Sulfate, Dried [Iron] 160 mg PO DAILY 12/11/20 [History] Vits #93/Iron Fum/FA [ Formula Tablet] 1 each PO DAILY 12/11/20 [History] metFORMIN [Glucophage] 500 mg PO BIDMEALS 12/11/20 [History] Past Medical History - Past Health History Medical/Surgical History: Denies Medical/Surgical History HEENT History: Reports: None Cardiovascular History: Reports: None Respiratory History: Reports: None Gastrointestinal History: Reports: None Genitourinary History: Reports: None SENIOR PLANNER History: Reports: , Spontaneous Musculoskeletal History: Reports: None Neurological History: Reports: None Psychiatric History: Reports: None Endocrine/Metabolic History: Reports: Diabetes, Gestational Insulin Pump Model and It Systems Analyst Consultant: None Hematologic History: Reports: Anemia, Other (See Below) Other Hematologic History: Gestational thrombocytopenia Immunologic History: Reports: None Oncologic (Cancer) History: Reports: None Dermatologic History: Reports: None - Infectious Disease History Infectious Disease History: Reports: Chicken Pox - Past Surgical History Head Surgeries/Procedures: Reports: None GI Surgical History: Reports: None Endocrine Surgical History: Reports: None Oncologic Surgical History: Reports: Other (See Below) Other Oncologic Surgeries/Procedures: mole removal for biopsy: benign Dermatological Surgical History: Reports: None Social & Family History - Family History Family Medical History: No Pertinent Family History - Tobacco Use Tobacco Use Status *Q: Never Tobacco User Second Hand Smoke Exposure: No - Caffeine Use Caffeine Use: Reports: None - Recreational Drug Use Recreational Drug Use: No H&P Review of Systems - Review of Systems: Review Of Systems: See Below L&D Exam - Exam Exam: See Below - Vital Signs Vital Signs: Last Vital Signs Temp 36.9 C 12/17/20 05:10 Pulse 54 L 12/17/20 07:10 Resp 16 12/17/20 07:10 BP 118/70 12/17/20 07:10 Pulse Ox 97 12/17/20 07:10 Weight: 85.275 kg - Patient Data Lab Results Last 24 hrs: Laboratory Results - last 24 hr 12/16/20 12/16/20 12/16/20 Range/Units 20:20 20:20 20:30 WBC 4.43 (4.0-11.0) K/uL RBC 4.64 (4.30-5.90) M/uL Hgb 13.2 (12.0-16.0) g/dL Hct 39.0 (36.0-46.0) % MCV 84.1 (80.0-98.0) fL MCH 28.4 (27.0-32.0) pg MCHC 33.8 (31.0-37.0) g/dL RDW Std Deviation 50.4 (28.0-62.0) fl RDW Coeff of Markell 17 H (11.0-15.0) % Plt Count 165 (150-400) K/uL MPV 11.20 (7.40-12.00) fL Neut % (Auto) 48.1 (48.0-80.0) % Lymph % (Auto) 38.8 (16.0-40.0) % Sutter % (Auto) 9.3 (0.0-15.0) % Eos % (Auto) 3.6 (0.0-7.0) % Baso % (Auto) 0.2 (0.0-1.5) % Neut # (Auto) 2.1 (1.4-5.7) K/uL Lymph # (Auto) 1.7 (0.6-2.4) K/uL Sutter # (Auto) 0.4 (0.0-0.8) K/uL Eos # (Auto) 0.2 (0.0-0.7) K/uL Baso # (Auto) 0.0 (0.0-0.1) K/uL Nucleated RBC % 0.0 /100WBC Nucleated RBCs # 0 K/uL D-Dimer, Quantitative 3.79 H (0.0-0.50) mg/L FEU Sodium (136-145) mmol/L Potassium (3.5-5.1) mmol/L Chloride (98-107) mmol/L Carbon Dioxide (21.0-32.0) mmol/L BUN (7.0-18.0) mg/dL Creatinine (0.6-1.0) mg/dL Est Cr Clr Drug Dosing Estimated GFR (MDRD) ml/min Glucose (74-106) mg/dL POC Glucose (70-99) mg/dL Calcium (8.5-10.1) mg/dL Magnesium (1.8-2.4) mg/dL Total Bilirubin (0.2-1.0) mg/dL AST (15-37) IU/L ALT (14-63) IU/L Alkaline Phosphatase (46-116) U/L Troponin I (0.000-0.056) ng/mL B-Natriuretic Peptide (<100) PG/ML Total Protein (6.4-8.2) g/dL Albumin (3.4-5.0) g/dL Globulin (2.6-4.0) g/dL Albumin/Globulin Ratio (0.9-1.6) Lipase 112 (73-393) U/L Urine Color Urine Appearance Urine pH (5.0-8.0) Ur Specific Troy (1.001-1.035) Urine Protein (NEGATIVE) mg/dL Urine Glucose (UA) (NEGATIVE) mg/dL Urine Ketones (NEGATIVE) mg/dL Urine Occult Blood (NEGATIVE) Urine Nitrite (NEGATIVE) Urine Bilirubin (NEGATIVE) Urine Urobilinogen (<2.0) EU/dL Ur Leukocyte Esterase (NEGATIVE) Urine RBC (0-2/HPF) Urine WBC (0-5/HPF) Ur Epithelial Cells (NONE-FEW) Urine Bacteria (NEGATIVE) Ur Random Creatinine mg/dL U Random Total Protein (<11.9) mg/dL Protein/Creatinin Ratio SARS-CoV-2 RNA (JOSE) (NEGATIVE) 12/16/20 12/16/20 12/16/20 Range/Units 20:30 20:30 20:30 WBC (4.0-11.0) K/uL RBC (4.30-5.90) M/uL Hgb (12.0-16.0) g/dL Hct (36.0-46.0) % MCV (80.0-98.0) fL MCH (27.0-32.0) pg MCHC (31.0-37.0) g/dL RDW Std Deviation (28.0-62.0) fl RDW Coeff of Markell (11.0-15.0) % Plt Count (150-400) K/uL MPV (7.40-12.00) fL Neut % (Auto) (48.0-80.0) % Lymph % (Auto) (16.0-40.0) % Sutter % (Auto) (0.0-15.0) % Eos % (Auto) (0.0-7.0) % Baso % (Auto) (0.0-1.5) % Neut # (Auto) (1.4-5.7) K/uL Lymph # (Auto) (0.6-2.4) K/uL Sutter # (Auto) (0.0-0.8) K/uL Eos # (Auto) (0.0-0.7) K/uL Baso # (Auto) (0.0-0.1) K/uL Nucleated RBC % /100WBC Nucleated RBCs # K/uL D-Dimer, Quantitative (0.0-0.50) mg/L FEU Sodium 139 (136-145) mmol/L Potassium 4.4 (3.5-5.1) mmol/L Chloride 106 (98-107) mmol/L Carbon Dioxide 25.1 (21.0-32.0) mmol/L BUN 13 (7.0-18.0) mg/dL Creatinine 0.7 (0.6-1.0) mg/dL Est Cr Clr Drug Dosing TNP Estimated GFR (MDRD) > 60.0 ml/min Glucose 91 (74-106) mg/dL POC Glucose (70-99) mg/dL Calcium 8.9 (8.5-10.1) mg/dL Magnesium 1.7 L (1.8-2.4) mg/dL Total Bilirubin 0.3 (0.2-1.0) mg/dL AST 27 (15-37) IU/L ALT 33 (14-63) IU/L Alkaline Phosphatase 95 (46-116) U/L Troponin I < 0.050 (0.000-0.056) ng/mL B-Natriuretic Peptide 208 H (<100) PG/ML Total Protein 5.9 L (6.4-8.2) g/dL Albumin 2.6 L (3.4-5.0) g/dL Globulin 3.3 (2.6-4.0) g/dL Albumin/Globulin Ratio 0.8 L (0.9-1.6) Lipase (73-393) U/L Urine Color Urine Appearance Urine pH (5.0-8.0) Ur Specific Troy (1.001-1.035) Urine Protein (NEGATIVE) mg/dL Urine Glucose (UA) (NEGATIVE) mg/dL Urine Ketones (NEGATIVE) mg/dL Urine Occult Blood (NEGATIVE) Urine Nitrite (NEGATIVE) Urine Bilirubin (NEGATIVE) Urine Urobilinogen (<2.0) EU/dL Ur Leukocyte Esterase (NEGATIVE) Urine RBC (0-2/HPF) Urine WBC (0-5/HPF) Ur Epithelial Cells (NONE-FEW) Urine Bacteria (NEGATIVE) Ur Random Creatinine mg/dL U Random Total Protein (<11.9) mg/dL Protein/Creatinin Ratio SARS-CoV-2 RNA (JOSE) (NEGATIVE) 12/16/20 12/16/20 12/16/20 Range/Units 20:33 21:15 21:15 WBC (4.0-11.0) K/uL RBC (4.30-5.90) M/uL Hgb (12.0-16.0) g/dL Hct (36.0-46.0) % MCV (80.0-98.0) fL MCH (27.0-32.0) pg MCHC (31.0-37.0) g/dL RDW Std Deviation (28.0-62.0) fl RDW Coeff of Markell (11.0-15.0) % Plt Count (150-400) K/uL MPV (7.40-12.00) fL Neut % (Auto) (48.0-80.0) % Lymph % (Auto) (16.0-40.0) % Sutter % (Auto) (0.0-15.0) % Eos % (Auto) (0.0-7.0) % Baso % (Auto) (0.0-1.5) % Neut # (Auto) (1.4-5.7) K/uL Lymph # (Auto) (0.6-2.4) K/uL Sutter # (Auto) (0.0-0.8) K/uL Eos # (Auto) (0.0-0.7) K/uL Baso # (Auto) (0.0-0.1) K/uL Nucleated RBC % /100WBC Nucleated RBCs # K/uL D-Dimer, Quantitative (0.0-0.50) mg/L FEU Sodium (136-145) mmol/L Potassium (3.5-5.1) mmol/L Chloride (98-107) mmol/L Carbon Dioxide (21.0-32.0) mmol/L BUN (7.0-18.0) mg/dL Creatinine (0.6-1.0) mg/dL Est Cr Clr Drug Dosing Estimated GFR (MDRD) ml/min Glucose (74-106) mg/dL POC Glucose 83 (70-99) mg/dL Calcium (8.5-10.1) mg/dL Magnesium (1.8-2.4) mg/dL Total Bilirubin (0.2-1.0) mg/dL AST (15-37) IU/L ALT (14-63) IU/L Alkaline Phosphatase (46-116) U/L Troponin I (0.000-0.056) ng/mL B-Natriuretic Peptide (<100) PG/ML Total Protein (6.4-8.2) g/dL Albumin (3.4-5.0) g/dL Globulin (2.6-4.0) g/dL Albumin/Globulin Ratio (0.9-1.6) Lipase (73-393) U/L Urine Color YELLOW Urine Appearance CLEAR Urine pH 6.0 (5.0-8.0) Ur Specific Troy 1.010 (1.001-1.035) Urine Protein NEGATIVE (NEGATIVE) mg/dL Urine Glucose (UA) NEGATIVE (NEGATIVE) mg/dL Urine Ketones NEGATIVE (NEGATIVE) mg/dL Urine Occult Blood SMALL H (NEGATIVE) Urine Nitrite NEGATIVE (NEGATIVE) Urine Bilirubin NEGATIVE (NEGATIVE) Urine Urobilinogen 0.2 (<2.0) EU/dL Ur Leukocyte Esterase NEGATIVE (NEGATIVE) Urine RBC 0-1 (0-2/HPF) Urine WBC 0-1 (0-5/HPF) Ur Epithelial Cells RARE (NONE-FEW) Urine Bacteria RARE (NEGATIVE) Ur Random Creatinine 25.6 mg/dL U Random Total Protein < 6.0 (<11.9) mg/dL Protein/Creatinin Ratio TNP SARS-CoV-2 RNA (JOSE) (NEGATIVE) 12/17/20 12/17/20 Range/Units 00:00 04:06 WBC (4.0-11.0) K/uL RBC (4.30-5.90) M/uL Hgb (12.0-16.0) g/dL Hct (36.0-46.0) % MCV (80.0-98.0) fL MCH (27.0-32.0) pg MCHC (31.0-37.0) g/dL RDW Std Deviation (28.0-62.0) fl RDW Coeff of Markell (11.0-15.0) % Plt Count (150-400) K/uL MPV (7.40-12.00) fL Neut % (Auto) (48.0-80.0) % Lymph % (Auto) (16.0-40.0) % Sutter % (Auto) (0.0-15.0) % Eos % (Auto) (0.0-7.0) % Baso % (Auto) (0.0-1.5) % Neut # (Auto) (1.4-5.7) K/uL Lymph # (Auto) (0.6-2.4) K/uL Sutter # (Auto) (0.0-0.8) K/uL Eos # (Auto) (0.0-0.7) K/uL Baso # (Auto) (0.0-0.1) K/uL Nucleated RBC % /100WBC Nucleated RBCs # K/uL D-Dimer, Quantitative (0.0-0.50) mg/L FEU Sodium (136-145) mmol/L Potassium (3.5-5.1) mmol/L Chloride (98-107) mmol/L Carbon Dioxide (21.0-32.0) mmol/L BUN (7.0-18.0) mg/dL Creatinine (0.6-1.0) mg/dL Est Cr Clr Drug Dosing Estimated GFR (MDRD) ml/min Glucose (74-106) mg/dL POC Glucose (70-99) mg/dL Calcium (8.5-10.1) mg/dL Magnesium 4.6 H (1.8-2.4) mg/dL Total Bilirubin (0.2-1.0) mg/dL AST (15-37) IU/L ALT (14-63) IU/L Alkaline Phosphatase (46-116) U/L Troponin I (0.000-0.056) ng/mL B-Natriuretic Peptide (<100) PG/ML Total Protein (6.4-8.2) g/dL Albumin (3.4-5.0) g/dL Globulin (2.6-4.0) g/dL Albumin/Globulin Ratio (0.9-1.6) Lipase (73-393) U/L Urine Color Urine Appearance Urine pH (5.0-8.0) Ur Specific [place] (1.001-1.035) Urine Protein (NEGATIVE) mg/dL Urine Glucose (UA) (NEGATIVE) mg/dL Urine Ketones (NEGATIVE) mg/dL Urine Occult Blood (NEGATIVE) Urine Nitrite (NEGATIVE) Urine Bilirubin (NEGATIVE) Urine Urobilinogen (<2.0) EU/dL Ur Leukocyte Esterase (NEGATIVE) Urine RBC (0-2/HPF) Urine WBC (0-5/HPF) Ur Epithelial Cells (NONE-FEW) Urine Bacteria (NEGATIVE) Ur Random Creatinine mg/dL U Random Total Protein (<11.9) mg/dL Protein/Creatinin Ratio SARS-CoV-2 RNA (JOSE) NEGATIVE (NEGATIVE) Result Diagrams: 12/16/20 20:30 12/16/20 20:30 - Problem List (1) Preeclampsia in period SNOMED Code(s): 019126277, [id number] ICD Code: O14.95 - UNSPECIFIED PRE-ECLAMPSIA, COMPLICATING THE PUERPERIUM Status: Acute Current Visit: Yes Problem List Initiated/Reviewed/Updated: Yes Orders Last 24hrs: Active Orders 24 hr Category Date Time Status Patient Status [ADT] Routine ADT 12/16/20 23:51 Active Antiembolic Devices [RC] .Routine Care 12/17/20 03:11 Active Bedrest [RC] ASDIRECTED Care 12/16/20 23:46 Active Bedrest [RC] ASDIRECTED Care 12/17/20 03:08 Active Communication Order [RC] PRN Care 12/17/20 03:08 Active Equipment to Bedside [RC] PRN Care 12/17/20 01:35 Active Height and Weight [RC] DAILY Care 12/17/20 03:08 Active Intake and Output [RC] QSHIFT Care 12/17/20 03:08 Active Notify Provider Status Change [RC] ASDIRECTED Care 12/16/20 23:46 Active Notify Provider Status Change [RC] ASDIRECTED Care 12/17/20 01:35 Active Notify Provider [RC] PRN Care 12/17/20 03:08 Active Oxygen Therapy [RC] PRN Care 12/17/20 03:08 Active Pulse Oximetry [RC] CONTINUOUS Care 12/17/20 03:11 Active Urinary Catheter Assessment [RC] ASDIRECTED Care 12/17/20 03:08 Active VTE/DVT Education [RC] PER UNIT ROUTINE Care 12/17/20 03:11 Active Vital Signs [RC] ASDIRECTED Care 12/16/20 23:46 Active Vital Signs [RC] ASDIRECTED Care 12/17/20 03:08 Active Fluid Restriction [DIET] Diet 12/17/20 Breakfast Active MAGNESIUM [CHEM] Q6H Lab 12/17/20 10:00 Ordered MAGNESIUM [CHEM] Q6H Lab 12/17/20 16:00 Ordered MAGNESIUM [CHEM] Q6 Lab 12/17/20 22:00 Ordered Acetaminophen [Tylenol Extra Strength] Med 12/17/20 04:35 Active 1,000 mg PO Q6H PRN Calcium Gluconate Med 12/17/20 03:08 Active 1 gm IV ASDIRECTED PRN Magnesium Sulfate/Water [Magnesium Sulfate in Water 20 Med 12/16/20 23:45 Active GM/500 ML] 20 gm in 500 ml IV ASDIRECTED Sodium Chloride 0.9% [Normal Saline] Med 12/17/20 03:08 Active 10 ml IV ASDIRECTED PRN Sodium Chloride 0.9% [Saline Flush] Med 12/16/20 20:23 Active 10 ml FLUSH ASDIRECTED PRN Sodium Chloride 0.9% [Saline Flush] Med 12/17/20 03:08 Active 10 ml FLUSH ASDIRECTED PRN Sodium Chloride 0.9% [Saline Flush] Med 12/16/20 20:23 Active 2.5 ml FLUSH ASDIRECTED PRN Sodium Chloride 0.9% [Saline Flush] Med 12/17/20 03:08 Active 2.5 ml FLUSH ASDIRECTED PRN hydrALAZINE [Apresoline] Med 12/16/20 23:46 Active 5 mg IVPUSH Q20M PRN DVT/VTE Prophylaxis Reflex [OM.PC] Routine Ot 12/17/20 03:08 Ordered Deep Tendon Reflexes [WOMSER] [address] 12/17/20 03:15 Ordered Deep Tendon Reflexes [WOMSER] [address] 12/17/20 04:15 Ordered Deep Tendon Reflexes [WOMSER] [address] 12/17/20 05:15 Ordered Deep Tendon Reflexes [WOMSER] [address] 12/17/20 06:15 Ordered Deep Tendon Reflexes [WOMSER] [address] 12/17/20 07:15 Ordered Deep Tendon Reflexes [WOMSER] [address] 12/17/20 08:15 Ordered Deep Tendon Reflexes [WOMSER] [address] 12/17/20 09:15 Ordered Deep Tendon Reflexes [WOMSER] [address] 12/17/20 10:15 Ordered Deep Tendon Reflexes [WOMSER] Q1 Ot 12/17/20 11:15 Ordered Deep Tendon Reflexes [WOMSER] [address] 12/17/20 12:15 Ordered Deep Tendon Reflexes [WOMSER] [address] 12/17/20 13:15 Ordered Deep Tendon Reflexes [WOMSER] [address] 12/17/20 14:15 Ordered Deep Tendon Reflexes [WOMSER] [address] 12/17/20 15:15 Ordered Deep Tendon Reflexes [WOMSER] [address] 12/17/20 16:15 Ordered Deep Tendon Reflexes [WOMSER] [address] 12/17/20 17:15 Ordered Deep Tendon Reflexes [WOMSER] [address] 12/17/20 18:15 Ordered Deep Tendon Reflexes [WOMSER] [address] 12/17/20 19:15 Ordered Deep Tendon Reflexes [WOMSER] [address] 12/17/20 20:15 Ordered Deep Tendon Reflexes [WOMSER] [address] 12/17/20 21:15 Ordered Deep Tendon Reflexes [WOMSER] [address] 12/17/20 22:15 Ordered Deep Tendon Reflexes [WOMSER] [address] 12/17/20 23:15 Ordered Deep Tendon Reflexes [WOMSER] [address] 12/18/20 00:15 Ordered Deep Tendon Reflexes [WOMSER] [address] 12/18/20 01:15 Ordered Deep Tendon Reflexes [WOMSER] [address] 12/18/20 02:15 Ordered Peripheral IV Insertion Adult [OM.PC] Routine Ot 12/17/20 03:08 Ordered Saline Lock Insert [OM.PC] Stat Ot 12/16/20 20:23 Ordered Seizure Precautions [OM.PC] Per Unit Routine Ot 12/17/20 03:11 Ordered Medication Orders Acetaminophen (Acetaminophen 500 Mg Tab) 1,000 mg PO Q6H PRN PRN Reason: Headache Last Admin: 12/17/20 04:55 Dose: 1,000 mg Documented by: HIPOLITO Calcium Gluconate (Calcium Gluconate 10% 1 Gm/10 Ml Sdv) 1 gm IV ASDIRECTED PRN PRN Reason: respiratory distress Hydralazine HCl (Hydralazine 20 Mg/Ml Sdv) 5 mg IVPUSH Q20M PRN PRN Reason: Hypertension Last Admin: 12/17/20 00:03 Dose: 5 mg Documented by: MINO Magnesium Sulfate (Magnesium Sulfate In Water 20 Gm/500 Ml) 20 gm in 500 mls @ 50 mls/hr IV ASDIRECTED ROMA Last Admin: 12/17/20 00:22 Dose: 2 gm/hr, 50 mls/hr Documented by: MINO Sodium Chloride (Sodium Chloride 0.9% 10 Ml Syringe) 10 ml FLUSH ASDIRECTED PRN PRN Reason: Keep Vein Open Sodium Chloride (Sodium Chloride 0.9% 2.5 Ml Syringe) 2.5 ml FLUSH ASDIRECTED PRN PRN Reason: Keep Vein Open Sodium Chloride (Sodium Chloride 0.9% 10 Ml Syringe) 10 ml FLUSH ASDIRECTED PRN PRN Reason: Keep Vein Open Sodium Chloride (Sodium Chloride 0.9% 2.5 Ml Syringe) 2.5 ml FLUSH ASDIRECTED PRN PRN Reason: Keep Vein Open Sodium Chloride (Sodium Chloride 0.9% 10 Ml Sdv) 10 ml IV ASDIRECTED PRN PRN Reason: IV Use Assessment/Plan Comment:: See HPI
--- NOTE | 2020-12-18 00:07 | PCM.SN.2 ---
- Free Text/Narrative Note: Patient seen at bedside , she denies any complains . She denies headache , RUQ pain and BV BPs - 110s - 120s /60s - 70s Mag levels : 4 -6mg/dl Urine output adequate Reflexes; 1+ Plan; Continue magnessium for a total of 24hrs Monitor for signs and symptoms of magnessium toxicity Preclampsia precautions.
[2020-12-18] MEDS: Acetaminophen 500 MG Tab PO PRN ×3 (00:47→18:27)
--- NOTE | 2020-12-18 09:45 | PCM.SN.2 ---
- Free Text/Narrative Note: Patient seen at bedside , she is feeling much better . she denies headache, right upper quadrant pain and blurring of vision She is s/p magnessium for 24hrs . She also denies dizziness . Call is out , voided Exam General: NAD Chest: CTA BL CVS : S1 S2 no murmurs Abdomen; Uterus about 18 weeks firm VSS: 110s - 130s/70s , HR 50s - 60s A/P 30yo PPD 7 s/p twin gestation admitted for hypertension with severe BPs , Now stable Plan Monitor BP hourly for 6 hrs , if all less than 140/90s , will send home with precautions Patient states she has BP monitor at home and will monitor BPs Regular diet
--- NOTE | 2020-12-18 09:51 | PCM.DCSUM1 ---
Discharge Summary - Hospital Course Free Text/Narrative:: Patient admitted for gestational hypertension with severe features She received 1 dose of IV hydralazine 5mg and 24hr of Magnessium for neuroprophylaxis Patient has responded well with treatment and was discharge with preclampsia precautions She will get a BP monitor at home Diagnosis: Stroke: No - Discharge Data Discharge Date: 12/18/20 Discharge Disposition: Home, Self-Care 01 Condition: Stable - Referral to Home Health Primary Care Physician: PCP None - Discharge Diagnosis/Problem(s) (1) Preeclampsia in period SNOMED Code(s): 850460141, [id number] ICD Code: O14.95 - UNSPECIFIED PRE-ECLAMPSIA, COMPLICATING THE PUERPERIUM Status: Acute Current Visit: Yes - Patient Instructions Diet: Usual Diet as Tolerated Activity: As Tolerated Showering/Bathing: May Shower Notify Provider of: Fever, Increased Pain, Swelling and Redness, Drainage - Discharge Plan *PRESCRIPTION DRUG MONITORING PROGRAM REVIEWED*: No *COPY OF PRESCRIPTION DRUG MONITORING REPORT IN PATIENT JUDIE: No Prescriptions/Med Rec: Ibuprofen [Motrin] 800 mg PO QID PRN 5 Days #30 tab PRN Reason: Abdominal Pain Home Medications: Home Meds Ferrous Sulfate, Dried [Iron] 160 mg PO DAILY 12/11/20 [History] Vits #93/Iron Fum/FA [ Formula Tablet] 1 each PO DAILY 12/11/20 [History] metFORMIN [Glucophage] 500 mg PO BIDMEALS 12/11/20 [History] Ibuprofen [Motrin] 800 mg PO QID PRN 5 Days #30 tab 12/18/20 [Rx] Forms: ED Department Discharge Referrals: PCP,None [Primary Care Provider] - - Discharge Summary/Plan Comment DC Time >30 min.: No Total # of Minutes for Discharge Time: 30 Discharge Summary/Plan Comment: BP monitor at home , follow up in 1 week for BP check - Patient Data Vitals - Most Recent: Last Vital Signs Temp 36.1 C 12/18/20 08:00 Pulse 52 L 12/18/20 08:00 Resp 18 12/18/20 08:00 BP 138/72 12/18/20 08:00 Pulse Ox 94 L 12/18/20 08:00 Weight - Most Recent: 85.275 kg I&O - Last 24 hours: Intake & Output 12/17/20 12/18/20 12/18/20 22:59 06:59 14:59 Output Total 2100 600 Balance -2100 -600 Lab Results - Last 24 hrs: Laboratory Results - last 24 hr 12/17/20 12/17/20 12/17/20 Range/Units 10:08 16:05 22:09 Magnesium 5.6 H 6.4 H 6.1 H (1.8-2.4) mg/dL Med Orders - Current: Current Medications Acetaminophen (Acetaminophen 500 Mg Tab) 1,000 mg PO Q6H PRN PRN Reason: Headache Last Admin: 12/18/20 00:47 Dose: 1,000 mg Documented by: Calcium Gluconate (Calcium Gluconate 10% 1 Gm/10 Ml Sdv) 1 gm IV ASDIRECTED PRN PRN Reason: respiratory distress Hydralazine HCl (Hydralazine 20 Mg/Ml Sdv) 5 mg IVPUSH Q20M PRN PRN Reason: Hypertension Last Admin: 12/17/20 00:03 Dose: 5 mg Documented by: Magnesium Sulfate (Magnesium Sulfate In Water 20 Gm/500 Ml) 20 gm in 500 mls @ 50 mls/hr IV ASDIRECTED ROMA Last Admin: 12/17/20 22:03 Dose: 2 gm/hr, 50 mls/hr Documented by: Sodium Chloride (Sodium Chloride 0.9% 10 Ml Syringe) 10 ml FLUSH ASDIRECTED PRN PRN Reason: Keep Vein Open Sodium Chloride (Sodium Chloride 0.9% 2.5 Ml Syringe) 2.5 ml FLUSH ASDIRECTED PRN PRN Reason: Keep Vein Open Sodium Chloride (Sodium Chloride 0.9% 10 Ml Syringe) 10 ml FLUSH ASDIRECTED PRN PRN Reason: Keep Vein Open Sodium Chloride (Sodium Chloride 0.9% 2.5 Ml Syringe) 2.5 ml FLUSH ASDIRECTED PRN PRN Reason: Keep Vein Open Sodium Chloride (Sodium Chloride 0.9% 10 Ml Sdv) 10 ml IV ASDIRECTED PRN PRN Reason: IV Use Discontinued Medications Sodium Chloride (Normal Saline) 1,000 mls @ 999 mls/hr IV .Bolus ONE Stop: 12/16/20 21:23 Last Admin: 12/16/20 20:40 Dose: 999 mls/hr Documented by: Magnesium Sulfate 4 gm/ Premix 100 mls @ 300 mls/hr IV BOLUS ONE Stop: 12/17/20 00:05 Last Admin: 12/17/20 00:03 Dose: 300 mls/hr Documented by: Iopamidol (Iopamidol 755 Mg/Ml 500 Ml Multipack Bottle) 100 ml IVPUSH ONETIME STA Stop: 12/16/20 22:53 Last Admin: 12/16/20 22:52 Dose: 100 ml Documented by:
[2020-12-18] MEDS ORDERED: NIFEdipine 10 MG Cap PO ONE (18:08)
--- NOTE | 2020-12-18 19:16 | PCM.SN.2 ---
- Free Text/Narrative Note: Informed by RN that patient BP 151/73 HR:43 . She now complains of some headache Plan: Will start Nifedepine . To give Nifedipine 30mg Stat X 1 dose Then continue Nifedipine 30mg XL in AM Will hold of discharge today Monitor BP till tomorrow
[2020-12-19] MEDS: Acetaminophen 500 MG Tab PO PRN ×3 (00:24→20:10)
--- NOTE | 2020-12-19 06:32 | PCM.SN.2 ---
- Free Text/Narrative Note: Informed by Nurse that Patient BP was 130s/80s , and HR now in 40s and patient complains of neck pain. Plan I will order a cardiac echocardiogram I will sign off for Internal medicine consult this am
[2020-12-19] MEDS ORDERED: NIFEdipine 30 MG Tab.ER PO SCH ×2 (09:00→14:20)
--- NOTE | 2020-12-19 12:31 | PCM.PNPP ---
- General Info Date of Service: 12/19/20 Functional Status: Reports: Pain Controlled, Tolerating Diet, Ambulating, Urinating - Review of Systems General: Reports: No Symptoms HEENT: Reports: Headaches, Other (neck pain) Pulmonary: Reports: No Symptoms Cardiovascular: Reports: No Symptoms Gastrointestinal: Reports: No Symptoms Genitourinary: Reports: No Symptoms Musculoskeletal: Reports: No Symptoms Skin: Reports: No Symptoms Neurological: Reports: No Symptoms Psychiatric: Reports: No Symptoms - Patient Data Vital Signs - Most Recent: Last Vital Signs Temp 36.2 C 12/19/20 07:59 Pulse 45 L 12/19/20 07:59 Resp 16 12/19/20 07:59 BP 135/91 H 12/19/20 08:03 Pulse Ox 96 12/19/20 07:59 Weight - Most Recent: 188 lb Med Orders - Current: Current Medications Acetaminophen (Acetaminophen 500 Mg Tab) 1,000 mg PO Q6H PRN PRN Reason: Headache Last Admin: 12/19/20 08:02 Dose: 1,000 mg Documented by: Calcium Gluconate (Calcium Gluconate 10% 1 Gm/10 Ml Sdv) 1 gm IV ASDIRECTED PRN PRN Reason: respiratory distress Hydralazine HCl (Hydralazine 20 Mg/Ml Sdv) 5 mg IVPUSH Q20M PRN PRN Reason: Hypertension Last Admin: 12/17/20 00:03 Dose: 5 mg Documented by: Magnesium Sulfate (Magnesium Sulfate In Water 20 Gm/500 Ml) 20 gm in 500 mls @ 50 mls/hr IV ASDIRECTED [facility] Last Admin: 12/17/20 22:03 Dose: 2 gm/hr, 50 mls/hr Documented by: Nifedipine (Nifedipine 30 Mg Tab.Er) 30 mg PO DAILY [facility] Last Admin: 12/19/20 08:03 Dose: 30 mg Documented by: Sodium Chloride (Sodium Chloride 0.9% 10 Ml Syringe) 10 ml FLUSH ASDIRECTED PRN PRN Reason: Keep Vein Open Sodium Chloride (Sodium Chloride 0.9% 2.5 Ml Syringe) 2.5 ml FLUSH ASDIRECTED PRN PRN Reason: Keep Vein Open Sodium Chloride (Sodium Chloride 0.9% 10 Ml Syringe) 10 ml FLUSH ASDIRECTED PRN PRN Reason: Keep Vein Open Sodium Chloride (Sodium Chloride 0.9% 2.5 Ml Syringe) 2.5 ml FLUSH ASDIRECTED PRN PRN Reason: Keep Vein Open Sodium Chloride (Sodium Chloride 0.9% 10 Ml Sdv) 10 ml IV ASDIRECTED PRN PRN Reason: IV Use Discontinued Medications Sodium Chloride (Normal Saline) 1,000 mls @ 999 mls/hr IV .Bolus ONE Stop: 12/16/20 21:23 Last Admin: 12/16/20 20:40 Dose: 999 mls/hr Documented by: Magnesium Sulfate 4 gm/ Premix 100 mls @ 300 mls/hr IV BOLUS ONE Stop: 12/17/20 00:05 Last Admin: 12/17/20 00:03 Dose: 300 mls/hr Documented by: Iopamidol (Iopamidol 755 Mg/Ml 500 Ml Multipack Bottle) 100 ml IVPUSH ONETIME STA Stop: 12/16/20 22:53 Last Admin: 12/16/20 22:52 Dose: 100 ml Documented by: Nifedipine (Nifedipine 10 Mg Cap) 30 mg PO ONETIME ONE Stop: 12/18/20 18:09 Last Admin: 12/18/20 18:29 Dose: 30 mg Documented by: - Interaction Support Person: - Exam General: Alert, Oriented, Cooperative, No Acute Distress HEENT: Pupils Equal, Pupils Reactive, EOMI Neck: Supple, Trachea Midline, No JVD Lungs: Normal Respiratory Effort GI/Abdominal Exam: Soft, Non-Tender, No Distention Extremities: Normal Inspection, Normal Range of Motion, Non-Tender, No Pedal Edema Skin: Warm, Dry, Intact Wound/Incisions: Healing Well Neurological: No New Focal Deficit Psy/Mental Status: Alert, Normal Affect, Normal Mood - Problem List Review Problem List Initiated/Reviewed/Updated: Yes - Assessment Assessment:: 30yo P4015 with hypertension with severe features, PPD 6. Complicated by bradycardia. - Plan Plan:: - s/p hydralazine and 24hr magnesium sulfate - this AM BP has been mild range 130-140s/80-90s, on procardia 30XL - had bradycardia with HR 40s, echo completed, reports is pending. - will monitor symptoms closely, consider medicine consult due to persistent bradycardia. Addendum at [id number]: Spoke to Cash Management Specialist regarding patient. He reviewed cardiac echo, felt it was normal. Recommended continuing with oral procardia to manage BP and Zio patch monitor for 14 days. Plans to follow up with him in clinic.
[2020-12-19] MEDS ORDERED: Hydrocortisone 1% Crm 30 GM Tube TOP PRN (12:54)
[2020-12-19 13:35] LABS: BLOOD UREA NITROGEN,BUN 9 mg/dL (7.0-18.0); CARBON DIOXIDE,CO2 24.9 mmol/L (21.0-32.0); CHLORIDE,CL 107 mmol/L (98-107); GLUCOSE RANDOM 80 mg/dL (74-106); POTASSIUM,K 4.2 mmol/L (3.5-5.1); SODIUM,NA 140 mmol/L (136-145)
[2020-12-19] MEDS ORDERED: Bisacodyl 5 MG Tab PO PRN (14:15)
[2020-12-19] MEDS ORDERED: NIFEdipine 30 MG Tab.ER PO ONE (14:17)
[2020-12-19] MEDS ORDERED: Bisacodyl 10 MG Supp RECTAL PRN (14:56)
--- NOTE | 2020-12-19 18:36 | PCM.CONS ---
H&P History of Present Illness - General Date of Service: 12/19/20 Admit Problem/Dx: Patient Status Order with Admit Dx/Problem H&P Chief Complains Dizziness and Low heart rate Hypertension - History of Present Illness Initial Comments - Free Text/Narative: 30 yo female who is post day 8 from twin vaginal delivery. Patient was a dmitted two days ago after feeling dizzy and off at home. Patient was noted to be bradycardic with HR in the mid 40s and BP in the 150s. EKG reported sinus bradycardia. Echocardiogram was taken but report pending. Patient was placed on Procardia and blood pressure has improved. I had patient walk in the room and she did not report any dizziness and her pulse was in the 70s. Temporal Head Pain Score (Numeric/FACES): 2 - Related Data Allergies/Adverse Reactions: Allergies Allergy/AdvReac Type Severity Reaction Status Date / Time No Known Allergies Allergy Verified 12/16/20 20:15 Home Medications: Home Meds Ferrous Sulfate, Dried [Iron] 160 mg PO DAILY 12/11/20 [History] Vits #93/Iron Fum/FA [ Formula Tablet] 1 each PO DAILY 12/11/20 [History] metFORMIN [Glucophage] 500 mg PO BIDMEALS 12/11/20 [History] Ibuprofen [Motrin] 800 mg PO QID PRN 5 Days #30 tab 12/18/20 [Rx] Past Medical History - Past Health History Medical/Surgical History: Denies Medical/Surgical History HEENT History: Reports: None Cardiovascular History: Reports: None Respiratory History: Reports: None Gastrointestinal History: Reports: None Genitourinary History: Reports: None HAZARDOUS MATERIAL TECHNICIAN History: Reports: , Spontaneous Musculoskeletal History: Reports: None Neurological History: Reports: None Psychiatric History: Reports: None Endocrine/Metabolic History: Reports: Diabetes, Gestational Insulin Pump Model and Key Punch Operator: None Hematologic History: Reports: Anemia, Other (See Below) Other Hematologic History: Gestational thrombocytopenia Immunologic History: Reports: None Oncologic (Cancer) History: Reports: None Dermatologic History: Reports: None - Infectious Disease History Infectious Disease History: Reports: Chicken Pox - Past Surgical History Head Surgeries/Procedures: Reports: None GI Surgical History: Reports: None Endocrine Surgical History: Reports: None Oncologic Surgical History: Reports: Other (See Below) Other Oncologic Surgeries/Procedures: mole removal for biopsy: benign Dermatological Surgical History: Reports: None Social & Family History - Family History Family Medical History: No Pertinent Family History - Tobacco Use Tobacco Use Status *Q: Never Tobacco User Second Hand Smoke Exposure: No - Caffeine Use Caffeine Use: Reports: None - Recreational Drug Use Recreational Drug Use: No H&P Review of Systems - Review of Systems: Review Of Systems: Comprehensive ROS is negative, except as noted in HPI. Exam - Exam Exam: See Below - Vital Signs Vital Signs: Last Vital Signs Temp 36.3 C 12/19/20 16:53 Pulse 48 L 12/19/20 16:53 Resp 16 12/19/20 16:53 BP 132/84 12/19/20 16:53 Pulse Ox 95 12/19/20 16:53 Weight: 85.275 kg - Exam General: Alert, Oriented HEENT: Mucosa Moist & Morven Lungs: Clear to Auscultation, Normal Respiratory Effort Cardiovascular: Regular Rate, Regular Rhythm GI/Abdominal Exam: Normal Bowel Sounds, Soft, Non-Tender Extremities: Non-Tender, No Pedal Edema Skin: Warm, Dry, Intact Neurological: No: Focal Deficit - Patient Data Lab Results Last 24 hrs: Laboratory Results - last 24 hr 12/19/20 12/19/20 Range/Units 13:05 13:05 WBC 3.54 L (4.0-11.0) K/uL RBC 4.93 (4.30-5.90) M/uL Hgb 14.1 (12.0-16.0) g/dL Hct 41.2 (36.0-46.0) % MCV 83.6 (80.0-98.0) fL MCH 28.6 (27.0-32.0) pg MCHC 34.2 (31.0-37.0) g/dL RDW Std Deviation 48.5 (28.0-62.0) fl RDW Coeff of Markell 16 H (11.0-15.0) % Plt Count 185 (150-400) K/uL MPV 10.40 (7.40-12.00) fL Neut % (Auto) 43.1 L (48.0-80.0) % Lymph % (Auto) 45.8 H (16.0-40.0) % Day % (Auto) 6.8 (0.0-15.0) % Eos % (Auto) 4.0 (0.0-7.0) % Baso % (Auto) 0.3 (0.0-1.5) % Neut # (Auto) 1.5 (1.4-5.7) K/uL Lymph # (Auto) 1.6 (0.6-2.4) K/uL Day # (Auto) 0.2 (0.0-0.8) K/uL Eos # (Auto) 0.1 (0.0-0.7) K/uL Baso # (Auto) 0.0 (0.0-0.1) K/uL Nucleated RBC % 0.0 /100WBC Nucleated RBCs # 0 K/uL Sodium 140 (136-145) mmol/L Potassium 4.2 (3.5-5.1) mmol/L Chloride 107 (98-107) mmol/L Carbon Dioxide 24.9 (21.0-32.0) mmol/L BUN 9 (7.0-18.0) mg/dL Creatinine 0.7 (0.6-1.0) mg/dL Est Cr Clr Drug Dosing 95.44 mL/min Estimated GFR (MDRD) > 60.0 ml/min Glucose 80 (74-106) mg/dL Calcium 8.6 (8.5-10.1) mg/dL Total Bilirubin 0.4 (0.2-1.0) mg/dL AST 15 (15-37) IU/L ALT 24 (14-63) IU/L Alkaline Phosphatase 96 (46-116) U/L Total Protein 6.1 L (6.4-8.2) g/dL Albumin 2.7 L (3.4-5.0) g/dL Globulin 3.4 (2.6-4.0) g/dL Albumin/Globulin Ratio 0.8 L (0.9-1.6) Result Diagrams: 12/19/20 13:05 12/19/20 13:05 Sepsis Event Note - Evaluation Sepsis Screening Result: No Definite Risk - Focused Exam Vital Signs: Vital Signs Temp Pulse Resp BP BP BP Pulse Ox 12/19/20 16:53 36.3 C 48 L 16 132/84 95 12/19/20 15:45 49 L 138/78 12/19/20 14:27 153/83 H 12/19/20 12:37 36.3 C 55 L 15 153/83 H 96 12/19/20 08:03 135/91 H 12/19/20 07:59 36.2 C 45 L 16 135/91 H 96 Consult PN Assessment/Plan Procedures: Procedures BLOOD TYPING SEROLOGIC ABO (06/23/20) BLOOD TYPING SEROLOGIC RH(D) (06/23/20) CHORIONIC GONADOTROPIN TEST (06/13/20) CHYLMD TRACH DNA AMP PROBE (06/23/20) COMPLETE CBC AUTOMATED (12/01/20) COMPLETE CBC W/AUTO DIFF WBC (06/13/20) COMPREHEN METABOLIC PANEL (06/13/20) CYTOPATH FL NONGYN SMEARS (06/24/20) EMERGENCY DEPT VISIT (06/13/20) GLUCOSE TEST (09/28/20) GLUCOSE TOLERANCE TEST (GTT) (10/06/20) HEPATITIS B SURFACE AG IA (06/23/20) METABOLIC PANEL TOTAL CA (03/01/20) N.GONORRHOEAE DNA AMP PROB (06/23/20) OB US < 14 WKS SINGLE FETUS (06/13/20) PROTHROMBIN TIME (03/01/20) RBC ANTIBODY SCREEN (06/23/20) ROUTINE VENIPUNCTURE (12/27/19) RUBELLA ANTIBODY (06/23/20) STREP B DNA AMP PROBE (12/01/20) SYPHILIS TEST NON-TREP QUAL (09/28/20) THROMBOPLASTIN TIME PARTIAL (03/01/20) URINALYSIS AUTO W/O SCOPE (11/11/19) URINALYSIS AUTO W/SCOPE (06/13/20) URINE CULTURE/COLONY COUNT (06/23/20) URINE TEST (06/13/20) Problem List Initiated/Reviewed/Updated: Yes Plan: 30 yo female with post hypertension and bradycardia. I would recommend placing patient on telemetry while she is in Hospital and Zio patch at discharge. Agree with continuing Procardia with close outpatient follow up
[2020-12-20] MEDS: Acetaminophen 500 MG Tab PO PRN ×2 (02:56→08:38)
[2020-12-20] MEDS: NIFEdipine 30 MG Tab.ER PO SCH ×2 (08:38→09:10)
--- NOTE | 2020-12-20 10:46 | PCM.DCSUM1 ---
Discharge Summary - Hospital Course Free Text/Narrative:: Patient admitted for gestational hypertension with severe features. She was feeling dizzy and unwell at home and had elevated BPs. She received 1 dose of IV hydralazine 5mg and 24hr of Magnesium for neuroprophylaxis. She had increasing BPs after stopping magnesium, was started on procardia 30XL, then increased to 60XL with good control of BP. She had persistent bradycardia since admission HR 40-60s. She was mildly symptomatic with dizziness. EKG showed sinus bradycardia. Telemetry also did not show any arrhthymia or heart block. She had normal CTA chest while in the ED. She had cardiac echo which was reviewed with cardiology and was normal. Medicine was consulted and recommended continuing with procardia and discharge home with Zio patch for 14 days. Scheduled outpatient follow up with sales incentive analyst next week. Patient was discharge with preeclampsia precautions and advised daily BP and HR checks. Will see her in the office for follow up next week. Diagnosis: Stroke: No - Discharge Data Discharge Date: 12/20/20 Discharge Disposition: Home, Self-Care 01 Condition: Stable - Referral to Home Health Primary Care Physician: PCP None - Patient Summary/Data Consults: Consultations 12/19/20 12:57 Consult to Physician [CONS] Urgent - Patient Instructions Diet: Usual Diet as Tolerated Activity: As Tolerated Showering/Bathing: May Shower Notify Provider of: Fever, Increased Pain, Swelling and Redness, Drainage Other/Special Instructions: Please check BP daily, call if greater than 150/100. Call with persistent headache, change in vision, shortness of breath, chest pain, upper abdominal pain or swelling. Discharge home with zio patch for 14 days, cardiology follow up in 1 week. Follow up at [facility] in 1 week - Discharge Plan *PRESCRIPTION DRUG MONITORING PROGRAM REVIEWED*: No *COPY OF PRESCRIPTION DRUG MONITORING REPORT IN PATIENT JUDIE: No Prescriptions/Med Rec: Ibuprofen [Motrin] 800 mg PO QID PRN 5 Days #30 tab PRN Reason: Abdominal Pain NIFEdipine [Procardia XL] 60 mg PO DAILY #60 tab.er Home Medications: Home Meds Ferrous Sulfate, Dried [Iron] 160 mg PO DAILY 12/11/20 [History] Vits #93/Iron Fum/FA [ Formula Tablet] 1 each PO DAILY 12/11/20 [History] metFORMIN [Glucophage] 500 mg PO BIDMEALS 12/11/20 [History] Ibuprofen [Motrin] 800 mg PO QID PRN 5 Days #30 tab 12/18/20 [Rx] Hydrocortisone [Hydrocortisone 1% Crm] 0 gm TOP ASDIRECTED PRN tube 12/20/20 [Rx] NIFEdipine [Procardia XL] 60 mg PO DAILY #60 tab.er 12/20/20 [Rx] bisacodyL [Dulcolax] 10 mg RECTAL Q12H PRN supp 12/20/20 [Rx] Forms: ED Department Discharge Referrals: Varinder Ramirez MD [Physician] - Kell Elliott MD [Physician] - - Discharge Summary/Plan Comment DC Time >30 min.: No Total # of Minutes for Discharge Time: 20 - Patient Data Vitals - Most Recent: Last Vital Signs Temp 36.3 C 12/20/20 10:15 Pulse 49 L 12/20/20 10:15 Resp 16 12/20/20 10:15 BP 140/80 12/20/20 10:15 Pulse Ox 98 12/20/20 10:15 Weight - Most Recent: 188 lb Lab Results - Last 24 hrs: Laboratory Results - last 24 hr 12/19/20 12/19/20 Range/Units 13:05 13:05 WBC 3.54 L (4.0-11.0) K/uL RBC 4.93 (4.30-5.90) M/uL Hgb 14.1 (12.0-16.0) g/dL Hct 41.2 (36.0-46.0) % MCV 83.6 (80.0-98.0) fL MCH 28.6 (27.0-32.0) pg MCHC 34.2 (31.0-37.0) g/dL RDW Std Deviation 48.5 (28.0-62.0) fl RDW Coeff of Markell 16 H (11.0-15.0) % Plt Count 185 (150-400) K/uL MPV 10.40 (7.40-12.00) fL Neut % (Auto) 43.1 L (48.0-80.0) % Lymph % (Auto) 45.8 H (16.0-40.0) % Donley % (Auto) 6.8 (0.0-15.0) % Eos % (Auto) 4.0 (0.0-7.0) % Baso % (Auto) 0.3 (0.0-1.5) % Neut # (Auto) 1.5 (1.4-5.7) K/uL Lymph # (Auto) 1.6 (0.6-2.4) K/uL Donley # (Auto) 0.2 (0.0-0.8) K/uL Eos # (Auto) 0.1 (0.0-0.7) K/uL Baso # (Auto) 0.0 (0.0-0.1) K/uL Nucleated RBC % 0.0 /100WBC Nucleated RBCs # 0 K/uL Sodium 140 (136-145) mmol/L Potassium 4.2 (3.5-5.1) mmol/L Chloride 107 (98-107) mmol/L Carbon Dioxide 24.9 (21.0-32.0) mmol/L BUN 9 (7.0-18.0) mg/dL Creatinine 0.7 (0.6-1.0) mg/dL Est Cr Clr Drug Dosing 95.44 mL/min Estimated GFR (MDRD) > 60.0 ml/min Glucose 80 (74-106) mg/dL Calcium 8.6 (8.5-10.1) mg/dL Total Bilirubin 0.4 (0.2-1.0) mg/dL AST 15 (15-37) IU/L ALT 24 (14-63) IU/L Alkaline Phosphatase 96 (46-116) U/L Total Protein 6.1 L (6.4-8.2) g/dL Albumin 2.7 L (3.4-5.0) g/dL Globulin 3.4 (2.6-4.0) g/dL Albumin/Globulin Ratio 0.8 L (0.9-1.6) Med Orders - Current: Current Medications Acetaminophen (Acetaminophen 500 Mg Tab) 1,000 mg PO Q6H PRN PRN Reason: Headache Last Admin: 12/20/20 08:38 Dose: 1,000 mg Documented by: Bisacodyl (Bisacodyl 10 Mg Supp) 10 mg RECTAL Q12H PRN PRN Reason: Constipation Last Admin: 12/20/20 02:59 Dose: 10 mg Documented by: Calcium Gluconate (Calcium Gluconate 10% 1 Gm/10 Ml Sdv) 1 gm IV ASDIRECTED PRN PRN Reason: respiratory distress Hydralazine HCl (Hydralazine 20 Mg/Ml Sdv) 5 mg IVPUSH Q20M PRN PRN Reason: Hypertension Last Admin: 12/17/20 00:03 Dose: 5 mg Documented by: Hydrocortisone (Hydrocortisone 1% Crm 30 Gm Tube) 0 gm TOP ASDIRECTED PRN PRN Reason: Hemorrhoids Last Admin: 12/19/20 15:09 Dose: 30 gm Documented by: Magnesium Sulfate (Magnesium Sulfate In Water 20 Gm/500 Ml) 20 gm in 500 mls @ 50 mls/hr IV ASDIRECTED [facility] Last Admin: 12/17/20 22:03 Dose: 2 gm/hr, 50 mls/hr Documented by: Nifedipine (Nifedipine 30 Mg Tab.Er) 60 mg PO DAILY [facility] Last Admin: 12/20/20 09:10 Dose: Not Given Documented by: Sodium Chloride (Sodium Chloride 0.9% 10 Ml Syringe) 10 ml FLUSH ASDIRECTED PRN PRN Reason: Keep Vein Open Sodium Chloride (Sodium Chloride 0.9% 2.5 Ml Syringe) 2.5 ml FLUSH ASDIRECTED PRN PRN Reason: Keep Vein Open Sodium Chloride (Sodium Chloride 0.9% 10 Ml Syringe) 10 ml FLUSH ASDIRECTED PRN PRN Reason: Keep Vein Open Sodium Chloride (Sodium Chloride 0.9% 2.5 Ml Syringe) 2.5 ml FLUSH ASDIRECTED PRN PRN Reason: Keep Vein Open Sodium Chloride (Sodium Chloride 0.9% 10 Ml Sdv) 10 ml IV ASDIRECTED PRN PRN Reason: IV Use Discontinued Medications Sodium Chloride (Normal Saline) 1,000 mls @ 999 mls/hr IV .Bolus ONE Stop: 12/16/20 21:23 Last Admin: 12/16/20 20:40 Dose: 999 mls/hr Documented by: Magnesium Sulfate 4 gm/ Premix 100 mls @ 300 mls/hr IV BOLUS ONE Stop: 12/17/20 00:05 Last Admin: 12/17/20 00:03 Dose: 300 mls/hr Documented by: Iopamidol (Iopamidol 755 Mg/Ml 500 Ml Multipack Bottle) 100 ml IVPUSH ONETIME STA Stop: 12/16/20 22:53 Last Admin: 12/16/20 22:52 Dose: 100 ml Documented by: Nifedipine (Nifedipine 10 Mg Cap) 30 mg PO ONETIME ONE Stop: 12/18/20 18:09 Last Admin: 12/18/20 18:29 Dose: 30 mg Documented by: Nifedipine (Nifedipine 30 Mg Tab.Er) 30 mg PO DAILY [facility] Last Admin: 12/19/20 08:03 Dose: 30 mg Documented by: Nifedipine (Nifedipine 30 Mg Tab.Er) 30 mg PO DAILY [facility] Nifedipine (Nifedipine 30 Mg Tab.Er) 30 mg PO ONETIME ONE Stop: 12/19/20 14:18 Last Admin: 12/19/20 14:27 Dose: 30 mg Documented by:
--- NOTE | 2020-12-20 10:56 | ECHO ---
EXAM DATE: 12/16/20 PATIENT'S AGE: 30 The ECHO report has been scanned into [employer] and can be seen in this patient's EMR (Electronic Medical Record) under the REPORTS section. The report has also been scanned into PACS. [facility]
== END 2020-12-20 12:15 | disposition home or self-care (01) | DRG 776 ==
LOC: MW.ED 19:51 → MW.OB 23:51
PROVIDERS: ADMIT Obstetrics & Gynecology; ATTEND Obstetrics & Gynecology
DX: O13.5 Gestational [pregnancy-induced] hypertension without significant proteinuria, complicating the puerperium (principal); Z79.84 Long term (current) use of oral hypoglycemic drugs; R00.1 Bradycardia, unspecified; Z20.822 Contact with and (suspected) exposure to COVID-19
CPT/HCPCS: 36415; 51702; 71045; 71045-26; 71275; 71275-26; 74177; 74177-26; 80053; 81001; 82570; 82947; 83690; 83735; 83880; 84156; 84484; 85025; 85379; 93005; 93307; 99285-25; 99291; A9270-GY; J0360; J3475; J7030; Q9967; U0002

== ENCOUNTER 2021-12-03 07:11 | Emergency (ER) | payer MEDICAID ==
[2021-12-03] MEDS ORDERED: Ondansetron 4 MG/2 ML SDV IVPUSH ONE (07:44)
[2021-12-03] MEDS ORDERED: Sodium Chloride 0.9% 20 ML SDV IV PRN (07:44)
[2021-12-03] MEDS ORDERED: Pantoprazole 40 MG Tab.CR PO STA (07:44)
[2021-12-03 07:57] LABS: POTASSIUM,K 4.4 mmol/L (3.5-5.1)
== END 2021-12-03 08:32 | disposition home or self-care (01) ==
LOC: MW.ED 07:11
DX: K29.70 Gastritis, unspecified, without bleeding (principal); E86.0 Dehydration
CPT/HCPCS: 36415; 80053; 81003; 83690; 84703; 85025; 96374; 99284; A9270; J2405

== ENCOUNTER 2022-05-19 14:38 | Emergency (ER) | payer MEDICAID ==
[2022-05-19] MEDS ORDERED: Sodium Chloride 0.9% 10 ML Syringe FLUSH PRN (15:10)
[2022-05-19] MEDS ORDERED: Sodium Chloride 0.9% 2.5 ML Syringe FLUSH PRN (15:10)
[2022-05-19] MEDS ORDERED: HYDROmorphone 1 MG/ML Syringe IVPUSH ONE (15:10)
[2022-05-19] MEDS ORDERED: Ondansetron 4 MG/2 ML SDV IVPUSH ONE (15:10)
[2022-05-19 15:32] LABS: CARBON DIOXIDE,CO2 23.3 mmol/L (21.0-32.0); POTASSIUM,K 4.1 mmol/L (3.5-5.1)
== END 2022-05-19 18:25 | disposition home or self-care (01) ==
LOC: MW.ED 14:38
DX: K80.50 Calculus of bile duct without cholangitis or cholecystitis without obstruction (principal); Z79.899 Other long term (current) drug therapy; Z79.84 Long term (current) use of oral hypoglycemic drugs
CPT/HCPCS: 36415; 76705; 80053; 81025; 83690; 85025; 96374; 96375; 99284; J1170; J2405; J3490

== ENCOUNTER 2023-09-08 16:39 | Emergency (ER) | payer BC ==
[2023-09-08] MEDS: Sodium Chloride 0.9% 1,000 ML IV ONE (18:23)
[2023-09-08] MEDS: Acetaminophen 500 MG Tab PO ONE (18:24)
[2023-09-08 18:28] LABS: BASOPHILS ABSOLUTE AUTO 0.03 K/uL (0.00-0.20); BASOPHILS PERCENT AUTO 0.6 % (0.0-1.0); EOSINOPHILS ABSOLUTE AUTO 0.32 K/uL (0.00-0.45); EOSINOPHILS PERCENT AUTO 6.5 % (0.0-6.0); HEMATOCRIT 31.8 % (37.0-47.0); HEMOGLOBIN 9.9 g/dL (12.0-16.0); LYMPHOCYTES ABSOLUTE AUTO 2.11 K/uL (1.00-4.80); MEAN CORPUSCULAR HEMOGLOBIN 23.1 pg (28.0-32.0); MEAN CORPUSCULAR HGB CONC 31.1 g/dL (32.0-36.0); MEAN CORPUSCULAR VOLUME 74.1 fL (83.0-99.0); MEAN PLATELET VOLUME 11.3 fL (9.4-12.3); MONOCYTES ABSOLUTE AUTO 0.34 K/uL (0.00-0.80); MONOCYTES PERCENT AUTO 6.9 % (0.0-8.0); NEUTROPHILS ABSOLUTE AUTO 2.11 K/uL (1.80-7.70); PLATELET COUNT,PLT 204 K/uL (150-400); RED BLOOD CELL COUNT 4.29 M/uL (4.10-5.30); WHITE BLOOD CELL COUNT,WBC 4.91 K/uL (3.9-11.3)
[2023-09-08 18:35] LABS: APPEARANCE,URINE CLEAR; BILIRUBIN,URINE NEGATIVE (NEGATIVE); COLOR,URINE YELLOW; GLUCOSE,URINE NEGATIVE (NEGATIVE); KETONES,URINE TRACE mg/dL (NEGATIVE); LEUKOCYTE ESTERASE,URINE NEGATIVE (NEGATIVE); NITRITE,URINE NEGATIVE (NEGATIVE); OCCULT BLOOD,URINE NEGATIVE (NEGATIVE); PH,URINE 6.5 (5.0-8.0); PROTEIN,URINE NEGATIVE (NEGATIVE); UROBILINOGEN,URINE 0.2 EU/dL (<2.0)
[2023-09-08 19:00] LABS: A/G RATIO 0.9 (0.9-1.6); ALBUMIN 3.6 g/dL (3.4-5.0); BILIRUBIN TOTAL 0.3 mg/dL (0.2-1.0); CALCIUM 9.4 mg/dL (8.5-10.1); CARBON DIOXIDE,CO2 25.9 mmol/L (21.0-32.0); CREATININE 0.8 mg/dL (0.6-1.0); EST CRCL DRUG DOSING (CG) 81.19 mL/min; POTASSIUM,K 3.9 mmol/L (3.5-5.1); PROTEIN TOTAL,TP 7.5 g/dL (6.4-8.2)
[2023-09-08] MEDS: Ketorolac 30 MG/ML SDV IVPUSH ONE (19:30)
== END 2023-09-08 21:40 | disposition home or self-care (01) ==
LOC: MW.ED 16:39
DX: K80.20 Calculus of gallbladder without cholecystitis without obstruction (principal); Z75.8 Other problems related to medical facilities and other health care; Z79.899 Other long term (current) drug therapy
CPT/HCPCS: 36415; 76705; 80053; 81003; 81025; 83690; 85025; 96374; 99285; A9270; J1885; J7030; 99284